=== PATIENT | male | born 1980 | race Caucasian/White ===

== ENCOUNTER 2020-04-01 10:18 | Emergency (ER) | payer SELFPAY ==
[2020-04-01 10:24] VITALS: BP 163/110; PULSE 92; RESP 14; TEMP 36.6; O2SAT 98
[2020-04-01 10:59] LABS: Basophils Absolute Auto 0.1 K/mm3 (0.0-0.1); Basophils Percent Auto 1.1 % (0.2-1.2); Eosinophils Absolute Auto 0.2 K/mm3 (0-0.3); Hematocrit 42.3 % (42.0-52.0); Hemoglobin 14.7 g/dL (14.0-18.0); Immature Granulocyte Absolute 0.01 K/mm3 (0.00-0.031); Immature Granulocyte Percent A 0.1 % (0-0.5); Lymphocytes Absolute Auto 2.84 K/mm3 (0.9-3.2); Mean Corpuscular HGB Conc 34.8 g/dl (32-36); Mean Corpuscular Hemoglobin 30.9 pg (26-34); Mean Corpuscular Volume 88.9 fl (80-100); Mean Platelet Volume 10.4 fl (7.4-10.4); Monocytes Absolute Auto 0.5 K/mm3 (0.1-0.6); Monocytes Percent Auto 7.4 % (2.6-8.5); Neutrophils Absolute Auto 3.6 K/mm3 (1.3-6.7); Neutrophils Percent Auto 49.4 % (45.5-73.1); Platelet Count Result 276 k/mm3 (150-375); Red Blood Count 4.76 M/mm3 (4.6-6.20); Red Cell Distribution Width 12.1 % (11.5-14.5); White Blood Count 7.3 K/mm3 (4.5-10.0)
[2020-04-01 11:05] LABS: Add Urine Microscopic? YES; Appearance Urine Clear (Clear); Bacteria Urine Trace /hpf; Bilirubin Urine Negative (Negative); Blood Urine Negative (Negative); Color Urine Yellow (Yellow); Glucose Urine UA Negative (Negative); Ketones Urine Negative (Negative); Leukocyte Esterase Ur Negative LEU/UL (Negative); Mucus Urine Heavy /lpf; Nitrate Urine Negative (Negative); Protein Urine 1+ mg/dL (Negative); RBC Urine 0-2 /hpf (0-2)
[2020-04-01 11:07] VITALS: BP 144/97; PULSE 72; RESP 19; O2SAT 98
[2020-04-01 11:11] LABS: Blood Urea Nitrogen 12 mg/dL (9-20); Calcium 9.2 mg/dL (8.4-10.2); Carbon Dioxide 24 mmol/L (22-30); Chloride 104 mmol/L (98-107); Estimated CRCL calculation 124 ml/min; Estimated Glomerular Filt Rate > 60; Glucose 94 mg/dL (75-110); Potassium 3.7 mmol/L (3.4-5.0); Sodium 135 mmol/L (137-145)
--- NOTE | 2020-04-01 11:45 | ED.GIBLEED ---
HPI - GI Bleed General Chief complaint: GI Bleed Stated complaint: rectal bleeding Time Seen by Provider: 04/01/20 10:20 History of Present Illness HPI Narrative: Patient is a 39-year-old male who presents ER with concerns for rectal bleeding. Reports she has had some bright red blood in his stool over the last week that is been intermittent in amount. It is not thought to toilet but is mixed with the stool. He reports he been constipated up until 2 days ago and is now going to the bathroom regularly. There is more blood in his stool earlier in the week as opposed to today. No dizziness or loss of consciousness. He is not on any blood thinners. Patient reports he quit drinking alcohol 6 weeks ago after accidentally overdosing on oxycodone while he was drinking alcohol. Related Data Home Medications Medication Instructions Recorded Confirmed venlafaxine 75 mg PO 04/01/20 Allergies Allergy/AdvReac Type Severity Reaction Status Date / Time No Known Allergies Allergy Mild Verified 04/01/20 11:08 Review of Systems Review of Systems: All systems reviewed & are unremarkable except as noted in HPI and below Constitutional: Constitutional: Denies chills, Denies fever(s) and Denies weakness ENT: Denies nasal congestion and Denies sore throat Gastrointestinal: Gastrointestinal: Denies abdominal pain, Reports constipation, Denies nausea and Denies vomiting Comments: Blood in stool Neurologic: Denies syncope PMFSH Past Medical History Medical History (Updated 04/01/20 @ 11:49 by Con Price MD) Hypertension Surgical History Surgical History (Updated 04/01/20 @ 11:47 by Con Price MD) History of surgery on arm Social History Social History (Updated 04/01/20 @ 11:47 by Con Price MD) Alcohol intake: former Alcohol use details: Quit 6 weeks ago. Gender identity (if verbalized by the patient): Male Exam Narrative: Exam Narrative: GENERAL: Well-appearing, well-nourished, and in no acute distress. HEAD: Normocephalic, atraumatic. CHEST: Clear to auscultation. No respiratory distress. HEART: Regular rate and rhythm. Normal peripheral pulses. ABDOMEN: Soft, nontender, nondistended. Normal-appearing rectum without external hemorrhoids. LATOYA with heme-negative stool. EXTREMITIES: Normal range of motion. No edema. SKIN: Warm, dry, no rash. NEURO: Alert and oriented x3. PSYCH: Normal mood and affect. Course Course Emergency Course: Likely had bleeding internal hemorrhoid. Patient reported recent treatment for UTI and wanted his urine rechecked. No symptoms at this time. No concerns for STDs per patient. Discharge home. Vital Signs Vital signs: Vital Signs Temperature 97.9 F 04/01/20 10:24 Pulse Rate 92 04/01/20 10:24 Respiratory Rate 14 04/01/20 10:24 Blood Pressure 163/110 H 04/01/20 10:24 Pulse Oximetry 98 04/01/20 10:24 Temperature 97.9 F 04/01/20 10:24 Pulse Rate 72 04/01/20 11:07 Respiratory Rate 19 04/01/20 11:07 Blood Pressure 144/97 H 04/01/20 11:07 Pulse Oximetry 98 04/01/20 11:07 MDM - GI Bleed Lab Data Result diagrams: 04/01/20 10:51 04/01/20 10:51 Labs: Lab Results 04/01/20 04/01/20 04/01/20 Range/Units 10:51 10:51 10:51 WBC 7.3 (4.5-10.0) K/mm3 RBC 4.76 (4.6-6.20) M/mm3 Hgb 14.7 (14.0-18.0) g/dL Hct 42.3 (42.0-52.0) % MCV 88.9 (80-100) fl MCH 30.9 (26-34) pg MCHC 34.8 (32-36) g/dl RDW 12.1 (11.5-14.5) % Plt Count 276 (150-375) k/mm3 MPV 10.4 (7.4-10.4) fl Immature Gran % (Auto) 0.1 (0-0.5) % Neut % (Auto) 49.4 (45.5-73.1) % Lymph % (Auto) 39.0 (18.3-44.2) % [place] % (Auto) 7.4 (2.6-8.5) % Eos % (Auto) 3.0 (0-4.4) % Baso % (Auto) 1.1 (0.2-1.2) % Lymph # (Auto) 2.84 (0.9-3.2) K/mm3 [place] # (Auto) 0.5 (0.1-0.6) K/mm3 Eos # (Auto) 0.2 (0-0.3) K/mm3 Baso # (Auto) 0.1 (0.0-0.1) K/mm3
[2020-04-01 12:21] VITALS: BP 131/92; PULSE 68; RESP 18; TEMP 36.2; O2SAT 98
== END 2020-04-01 12:24 | disposition home or self-care (01) ==
PROVIDERS: Emergency Provider Emergency Medicine; PCP Orthopaedic Surgery
DX: K64.9 Unspecified hemorrhoids (principal); I10 Essential (primary) hypertension; Z87.891 Personal history of nicotine dependence
CPT/HCPCS: 36415; 80048; 81001; 85025; 99283

== ENCOUNTER 2020-07-25 09:16 | Emergency (ER) | payer OTHER, SELFPAY ==
--- NOTE | ~2020-07-25 | XR_ITS ---
EXAMINATION: XR knee LT 3V EXAM DATE: 07/25/2020 10:43 INDICATION: New onset left knee pain. Past injury. TECHNIQUE: Three projections of the left knee. There is no prior study for comparison. FINDINGS: No evidence osteochondral defect or joint body in the left knee joint. There is a small joint effusion. There are no acute fractures or dislocations identified. There is no subcutaneous ga s. Incompletely imaged tibial intramedullary rachana, imaged portion intact and without periprosthetic lucency. Evidence of old fibular shaft fracture. Presumed surgically fixed tibial fracture not image d. Joint space is well-maintained, no bony productive changes or evidence of arthritis. IMPRESSION: Small left knee joint effusion. Tibial intramedullary rachana. Reviewed, dictated and finalized at location A.
[2020-07-25 09:30] VITALS: BP 154/107; PULSE 77; RESP 14; TEMP 36.6; O2SAT 99
[2020-07-25] MEDS: KETOROLAC (*BKC) 60 MG/2 ML VIAL IM (10:48)
--- NOTE | 2020-07-25 11:05 | ED.LOWEXIN ---
HPI - Extremity Injury (Lower) General Chief Complaint: Extremity Injury, Lower Stated Complaint: left knee pain Time Seen by Provider: 07/25/20 10:03 Source: patient Mode of arrival: ambulatory Limitations: no limitations History of Present Illness HPI Narrative: Patient is a 39-year-old male who presents to emergency department for evaluation of left knee pain with history of chronic leg pain secondary to prior injuries has not seen any specialist does not have a primary care doctor notes that he is continued to have pain and recently was doing more running and had to stop because his pain increased after doing so noting pain throughout the knee joint that radiates down patient has otherwise not been seen for this complaint does not have an established relationship with orthopedic surgery but has history of multiple orthopedic surgeries but has not maintained relationship with the surgeon Related Data Allergies Allergy/AdvReac Type Severity Reaction Status Date / Time No Known Allergies Allergy Mild Verified 04/01/20 11:08 Review of Systems Review of Systems: All systems reviewed & are unremarkable except as noted in HPI and below PMFSH Past Medical History Medical History Hypertension Surgical History Surgical History History of surgery on arm Social History Social History (Updated 07/25/20 @ 11:06 by Patrick Dc PA-C) Smoking status: Current every day smoker Alcohol intake: former Gender identity (if verbalized by the patient): Male Exam Narrative: Exam Narrative: GENERAL: Well-appearing, well-nourished, and in no acute distress. HEAD: Normocephalic, atraumatic. EYES: PERRLA and EOMI. ENT: Nares clear, no rhinorrhea or epistaxis. Mucous membranes moist. EXTREMITIES: Normal range of motion. No edema. Tenderness of the left knee joint no deformity noted SKIN: Warm, dry, no rash. NEURO: No focal deficits. Alert and oriented x3. Neurovascularly intact PSYCH: Normal mood and affect. Course Course Emergency Course: Patient in the room in no distress aware of case findings treatment plan and diagnosis Vital Signs Vital signs: Vital Signs Temperature 97.8 F 07/25/20 09:30 Pulse Rate 77 07/25/20 09:30 Respiratory Rate 14 07/25/20 09:30 Blood Pressure 154/107 H 07/25/20 09:30 Pulse Oximetry 99 09/29/20 09:30 Temperature 97.8 F 07/25/20 09:30 Pulse Rate 77 07/25/20 09:30 Respiratory Rate 14 07/25/20 09:30 Blood Pressure 154/107 H 07/25/20 09:30 Pulse Oximetry 99 07/25/20 09:30 MDM - Extremity Injury (Lower) MDM Narrative Medical decision making narrative: Patients injury or pain is consistent with musculoskeletal etiology. No signs of neurological or vascular compromise on exam. Compartments and tisues are soft without signs of compartment syndrome. Pain is felt appropriate for further evaluation on an outpatient basis. Patient given Mino wrap and referrals to primary care and orthopedic surgery Discharge Plan Discharge Clinical Impression: Acute pain of left knee Patient Disposition: Home, Self-Care Condition: Stable Instructions: Antibiotic Form, Arthralgia (ED) Additional Instructions: Wear Mino wrap with limited weight on the affected leg until able to bear weight without pain. Ice and elevate extremity. Pain medication as needed and directed. Follow up with your doctor for further care in the next 7 days. Return if symptoms worsen or concerns or any increase in redness swelling pain or fever over 100.5 or any loss of feeling or function in the extremity. Prescriptions: New meloxicam 15 mg tablet 15 mg PO DAILY Qty: 7 RF: 0 Follow-up/Referrals: PHYSICIAN,[employer] OPERATOR [Primary Care Provider] - Ebenezer Cha MD [Physician] - Rojelio Pham MD [Physician] -
[2020-07-25 11:20] VITALS: BP 145/98; PULSE 64; RESP 12; O2SAT 99
== END 2020-07-25 11:21 | disposition home or self-care (01) ==
PROVIDERS: Emergency Provider Emergency Medicine
DX: M25.562 Pain in left knee (principal); I10 Essential (primary) hypertension; F17.200 Nicotine dependence, unspecified, uncomplicated
CPT/HCPCS: 73562; 96372; 99283; J1885

== ENCOUNTER 2020-08-28 17:00 | Outpatient (RCR) | payer OTHER, SELFPAY ==
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
--- NOTE | 2020-09-04 15:17 | PCPTNOTE ---
Patient called & cancelled scheduled appointment this date. States that his ride cancelled on him.
--- NOTE | 2020-09-06 16:27 | PCPTNOTE ---
Patient did not show up for scheduled appointment this date. Zaid was called and a message was left reminding him of his next appointment.
--- NOTE | 2020-09-11 16:53 | PCPTNOTE ---
Patient did not show up for scheduled appointment this date. Called and left a voicemail reminding him of his next appointment and reminding him of the attendance policy.
--- NOTE | 2020-09-13 14:49 | PCPTNOTE ---
Patient did not show up for scheduled appointment this date.
--- NOTE | 2020-09-13 14:49 | PCPTNOTE ---
PHYSICAL THERAPY DISCHARGE NOTE Attending Provider: Rojelio Pham MD Patient:Zaid Mendez Date of :1980 Patient has not returned for any further treatments since 08/28/2020, therefore he will be discharged at this time. Patient?s initial visit was on 08/24/2020 and he attended a total of 2 visits out of 6 scheduled visits. The goals have not been assessed. Thank you for referring this patient to [facility]. Please review, sign, date and return this discharge summary PORTIA. I have been updated about the patient's current status and I agree with discharge from the above service at this time. Referring Physician Date
== END 2020-09-14 08:45 | disposition home or self-care (01) ==
LOC: ANHPT 17:00
PROVIDERS: Visit Provider Orthopaedic Surgery
DX: M22.42 Chondromalacia patellae, left knee (principal)
CPT/HCPCS: 97110; 97161

== ENCOUNTER 2021-06-15 08:38 | Emergency (ER) | payer OTHER, SELFPAY ==
--- NOTE | ~2021-06-15 | XR_ITS ---
EXAMINATION: XR chest 2V 06/15/2021 09:44 INDICATION: Midsternal chest pain PROCEDURE: 2 view chest COMPARISON: No prior studies for comparison. FINDINGS: The lungs are clear. The cardiomediastinal silhouette is within normal limits. There are no pleural effusions. There is no pneumothorax suspected. IMPRESSION: 1: NO ACUTE CARDIOPULMONARY DISEASE. Reviewed, dictated and finalized at location A.
--- NOTE | 2021-06-15 08:47 | ECG_ITS ---
Measurements Intervals [place] Rate: 74 P: 33 [place]: 163 QRS: -45 QRSD: 93 T: 19 QT: 347 QTc: 386 Interpretive Statements SINUS RHYTHM WITH SINUS ARRHYTHMIA LEFT AXIS DEVIATION DELAYED PRECORDIAL R/S TRANSITION CONSIDER INFERIOR INFARCT, AGE INDETERMINATE ABNORMAL ECG Electronically Signed On 06-15-2021 9:44:24 CDT by Sorin Benavidez D.O.
[2021-06-15 08:57] VITALS: BP 158/107; PULSE 71; RESP 15; TEMP 36.2; O2SAT 98
[2021-06-15 09:41] LABS: Basophils Absolute Auto 0.1 K/mm3 (0.0-0.1); Basophils Percent Auto 0.9 % (0.2-1.2); Eosinophils Absolute Auto 0.1 K/mm3 (0-0.3); Eosinophils Percent Auto 1.8 % (0-4.4); Hematocrit 49.3 % (42.0-52.0); Hemoglobin 17.2 g/dL (14.0-18.0); Immature Granulocyte Absolute 0.02 K/mm3 (0.00-0.031); Immature Granulocyte Percent A 0.3 % (0-0.5); Lymphocytes Absolute Auto 2.22 K/mm3 (0.9-3.2); Lymphocytes Percent Auto 32.8 % (18.3-44.2); Mean Corpuscular HGB Conc 34.9 g/dl (32-36); Mean Corpuscular Hemoglobin 31.1 pg (26-34); Mean Corpuscular Volume 89.2 fl (80-100); Mean Platelet Volume 10.4 fl (7.4-10.4); Monocytes Absolute Auto 0.5 K/mm3 (0.1-0.6); Monocytes Percent Auto 6.8 % (2.6-8.5); Neutrophils Absolute Auto 3.9 K/mm3 (1.3-6.7); Neutrophils Percent Auto 57.4 % (45.5-73.1); Platelet Count Result 260 k/mm3 (150-375); Red Blood Count 5.53 M/mm3 (4.6-6.20); Red Cell Distribution Width 12.6 % (11.5-14.5); White Blood Count 6.8 K/mm3 (4.5-10.0)
[2021-06-15 09:57] LABS: Partial Thromboplastin Time 32.6 SECONDS (22.3-36.8)
[2021-06-15 09:59] LABS: Anion Gap 9 mmol/L (8-16); Blood Urea Nitrogen 13 mg/dL (9-20); Calcium 9.8 mg/dL (8.4-10.2); Carbon Dioxide 21 mmol/L (22-30); Chloride 105 mmol/L (98-107); Estimated CRCL calculation 112 ml/min; Estimated Glomerular Filt Rate > 60; Glucose 105 mg/dL (65-110); Sodium 135 mmol/L (137-145)
[2021-06-15 10:02] LABS: INR 0.9; Prothrombin Time 12.3 Seconds (11.1-14.7)
[2021-06-15 10:11] LABS: Troponin I < 0.012 ng/mL (0.000-0.034)
--- NOTE | 2021-06-15 10:13 | ED.CHESTPAIN ---
HPI - Chest Pain General Chief Complaint: Chest Pain Stated Complaint: CP Time Seen by Provider: 06/15/21 08:53 History of Present Illness HPI narrative: Intermittent chest pain for a few months. Feels like a pulled muscle. Worse with breathing. Occasionally associated with SOB. Pain is mild. No nausea, vomiting, fever. Related Data Allergies Allergy/AdvReac Type Severity Reaction Status Date / Time No Known Allergies Allergy Mild Verified 06/15/21 09:02 Review of Systems Review of Systems: All systems reviewed & are unremarkable except as noted in HPI and below PMFSH Past Medical History Medical History Hypertension Surgical History Surgical History History of knee surgery (~2016) History of surgery on arm (~2002) Compound Fx Social History Social History Smoking status: Current every day smoker Alcohol intake: former Alcohol use details: Quit 6 weeks ago. Gender identity (if verbalized by the patient): Male Exam Const: General: healthy appearing, no acute distress and alert Orientation/consciousness: patient oriented x3 HENMT: Head: normal to inspection Neck: Neck: normal visual inspection and no lymphadenopathy Chest: Chest palpation & inspection: no tenderness Resp: Effort & Inspection: normal respiratory effort Auscultation: clear to auscultation bilaterally, no rales, no rhonchi and no wheezes Cardio: Jugular venous distension: no JVD Rate: regular rate Rhythm: regular rhythm Heart sounds: no murmurs GI: Inspection: non-distended GI Palp: Yes Soft to palpation and No Tenderness to palpation present (GI) Skin: General skin exam: normal color Neuro: General: patient oriented x3 and moves all extremities Speech: normal speech Extrem: General: no edema Psych: Appearance: well kempt Affect: normal affect Course Vital Signs Vital signs: Vital Signs Temperature 36.2 C L 06/15/21 08:57 Pulse Rate 71 06/15/21 08:57 Respiratory Rate 15 06/15/21 08:57 Blood Pressure 158/107 H 06/15/21 08:57 Pulse Oximetry 98 06/15/21 08:57 Temperature 36.2 C L 08/20/21 08:57 Pulse Rate 81 06/15/21 10:27 Respiratory Rate 16 06/15/21 10:27 Blood Pressure 158/107 H 06/15/21 08:57 Pulse Oximetry 98 06/15/21 08:57 MDM - Chest Pain MDM Narrative Medical decision making narrative: Pain is atypical. pleuritic in nature. May be early COPD. Medical Records Data Attestation: I reviewed the patient's medical records. Lab Data Attestation: I reviewed the patient's lab results. Result diagrams: 06/15/21 09:31 06/15/21 09:31 Labs: Lab Results 06/15/21 06/15/21 06/15/21 Range/Units 09:31 09:31 09:31 WBC 6.8 (4.5-10.0) K/mm3 RBC 5.53 (4.6-6.20) M/mm3 Hgb 17.2 (14.0-18.0) g/dL Hct 49.3 (42.0-52.0) % MCV 89.2 (80-100) fl MCH 31.1 (26-34) pg MCHC 34.9 (32-36) g/dl RDW 12.6 (11.5-14.5) % Plt Count 260 (150-375) k/mm3 MPV 10.4 (7.4-10.4) fl Immature Gran % (Auto) 0.3 (0-0.5) % Neut % (Auto) 57.4 (45.5-73.1) % Lymph % (Auto) 32.8 (18.3-44.2) % [place] % (Auto) 6.8 (2.6-8.5) % Eos % (Auto) 1.8 (0-4.4) % Baso % (Auto) 0.9 (0.2-1.2) % Lymph # (Auto) 2.22 (0.9-3.2) K/mm3 [place] # (Auto) 0.5 (0.1-0.6) K/mm3 Eos # (Auto) 0.1 (0-0.3) K/mm3 Baso # (Auto) 0.1 (0.0-0.1) K/mm3 Abs Immat Gran (auto) 0.02 (0.00-0.031) K/mm3 Absolute Neuts (auto) 3.9 (1.3-6.7) K/mm3 Absolute Nucleated RBC 0.0 (0.0-0.012) K/mm3 Nucleated RBC % 0.0 (0.0-0.2) % PT 12.3 (11.1-14.7) Seconds INR 0.9 APTT 32.6 (22.3-36.8) SECONDS Sodium 135 L (137-145) mmol/L Potassium 4.0 (3.4-5.0) mmol/L Chloride 105 (98-107) mmol/L Carbon Dioxide 21 L (22-30) mmol/L A
[2021-06-15 10:27] VITALS: PULSE 81; RESP 16
[2021-06-15] MEDS: ALBUTEROL SULFATE NEB 2.5 MG/0.5 ML INH 5 MG INHALATION (10:27)
[2021-06-15] MEDS: IPRATROPIUM BR 0.02% INH SOLN 0.5 MG/2.5 ML VIAL INHALATION (10:28)
[2021-06-15] MEDS: predniSONE 20 MG TABLET 60 MG PO (10:57)
[2021-06-15] MEDS: ASPIRIN 81 MG CHEWABLE TABLET 324 MG PO (10:57)
== END 2021-06-15 10:59 | disposition home or self-care (01) ==
PROVIDERS: Emergency Provider Emergency Medicine
DX: R07.81 Pleurodynia (principal); I10 Essential (primary) hypertension; F17.210 Nicotine dependence, cigarettes, uncomplicated
CPT/HCPCS: 36415; 71046; 80048; 84484; 85025; 85610; 85730; 93005; 94640; 99284; A9270; J7512

== ENCOUNTER 2022-02-20 18:23 | Emergency (ER) | payer OTHER, SELFPAY ==
--- NOTE | ~2022-02-20 | XR_ITS ---
EXAMINATION: XR chest 2V DATE: 02/20/2022 19:04 INDICATION: Left-sided chest pain TECHNIQUE: PA and lateral views of the chest are obtained. COMPARISON: 06/15/2021 FINDINGS: The lungs are free of acute opacities. There is no pleural effusion or pneumothorax. The ca rdiomediastinal silhouette is normal. The visualized bones and soft tissues are unremarkable. IMPRESSION: 1. No acute cardiopulmonary abnormality. Reviewed, dictated and finalized at location F.
--- NOTE | 2022-02-20 18:24 | ECG_ITS ---
Measurements Intervals [place] Rate: 96 P: 43 [place]: 158 QRS: -42 QRSD: 97 T: 29 QT: 320 QTc: 405 Interpretive Statements SINUS RHYTHM MARKED LEFT AXIS DEVIATION [QRS AXIS < -30] COMPARED TO ECG 06/15/2021 08:47:26 NO SIGNIFICANT CHANGES Electronically Signed On 02-20-2022 20:17:16 CDT by Stephany Wynn M.D.
[2022-02-20 18:29] VITALS: BP 149/98; PULSE 89; RESP 18; TEMP 37.2; O2SAT 98
--- NOTE | 2022-02-20 22:16 | PC.NURSE ---
Pt to room 3 ambulatory from triage. States he has had intermittent chest pain all day.
[2022-02-20 22:19] VITALS: BP 157/110; PULSE 76; RESP 18; O2SAT 98
--- NOTE | 2022-02-20 22:30 | ED.CHESTPAIN ---
HPI - Chest Pain General Chief Complaint: Chest Pain Stated Complaint: chest pain Time Seen by Provider: 02/20/22 22:07 Source: patient Mode of arrival: ambulatory Limitations: no limitations History of Present Illness HPI narrative: Patient is a 41-year-old male who presents the ED with report of left-sided chest pain. Patient reports he woke up around 5 AM this morning with sharp left-sided chest pain. The pain has been intermittent but then seemed to become worse about 3 hours prior to arrival. Denied any radiation of the pain or any aggravating or alleviating factors. No shortness of breath, nausea or diaphoresis, BLE pain or edema, fever, chills, cough, abdominal pain. Patient also reported having dizziness, described as lightheadedness, and a headache today. He did take Aleve for his headache around 3pm. Denies any dizziness or chest pain currently in the ED bed. No congestion, rhinorrhea, visual changes. Related Data Home Medications Medication Instructions Recorded Confirmed hydroxyzine pamoate 25 mg PO BID PRN 02/20/22 02/20/22 losartan 100 mg PO DAILY 02/20/22 02/20/22 olanzapine 7.5 mg PO DAILY 02/20/22 02/20/22 Allergies Allergy/AdvReac Type Severity Reaction Status Date / Time No Known Allergies Allergy Mild Verified 06/15/21 09:02 Review of Systems Review of Systems: CONSTITUTIONAL: Denies fever, chills, or sweats. EYES: Denies visual changes. ENT: Denies rhinorrhea, congestion, sore throat, or otalgia. CARDIOVASCULAR: Reports L sided CP. Denies BLE edema. RESPIRATORY: Denies cough or dyspnea. GASTROINTESTINAL: Denies abdominal pain, nausea, vomiting, or diarrhea. MUSCULOSKELETAL: Denies BLE pain, back pain, joint pain, or myalgia. NEUROLOGIC: Reports dizziness, headache. Denies numbness, or weakness. All systems reviewed & are unremarkable except as noted in HPI and below PMFSH Past Medical History Medical History Hypertension Surgical History Surgical History History of knee surgery (~2016) History of surgery on arm (~2002) Compound Fx Social History Social History Smoking status: Current every day smoker Alcohol intake: former Alcohol use details: Quit 6 weeks ago. Gender identity (if verbalized by the patient): Male Exam Narrative: GENERAL: Well appearing, well-nourished, non-toxic, in no acute distress. HEAD: Normocephalic, atraumatic. NECK: Supple. No adenopathy, no masses. RESPIRATORY: Airway patent, respirations nonlabored. Clear to auscultation bilaterally, no rales, rhonchi. Very occasional wheeze. CARDIOVASCULAR: Regular rate and rhythm without murmurs, rubs, or gallops. Radial pulses 2+ and equal bilaterally. ABDOMINAL: Soft, nontender, nondistended, no hepatosplenomegaly. Normoactive BS. MUSCULOSKELETAL: Moves all extremities. Strength/ROM intact without gross deformities or TTP. No edema. No calf tenderness. SKIN: Warm, dry, normal color. No rashes. NEURO: A&O X3. Speech clear. Cranial nerves II-XII grossly intact. Steady gait. No ataxic movements. PSYCHIATRIC: Appropriate mood and affect. Normal interaction. Course Vital Signs Vital signs: Vital Signs Temperature 99 F 02/20/22 18:29 Pulse Rate 89 02/20/22 18:29 Respiratory Rate 18 02/20/22 18:29 Blood Pressure 149/98 H 02/20/22 18:29 Pulse Oximetry 98 02/20/22 18:29 Temperature 99 F 02/20/22 18:29 Pulse Rate 78 02/21/22 02:08 Respiratory Rate 14 02/21/22 00:54 Blood Pressure 154/118 H 02/21/22 02:08 Pulse Oximetry 100 02/21/22 00:54 MDM - Chest Pain MDM Narrative Medical decision making narrative: Patient presented to ED with report of chest pain, dizziness, headache. Denied any dizziness upon my evaluation. Vital signs stable upon arrival. Blood pressure mildly elevated. He does have known history of hy
[2022-02-20 22:34] LABS: Basophils Absolute Auto 0.1 K/mm3 (0.0-0.1); Basophils Percent Auto 0.8 % (0.2-1.2); Eosinophils Absolute Auto 0.1 K/mm3 (0-0.3); Eosinophils Percent Auto 1.3 % (0-4.4); Hematocrit 45.9 % (42.0-52.0); Immature Granulocyte Absolute 0.03 K/mm3 (0.00-0.031); Immature Granulocyte Percent A 0.3 % (0-0.5); Lymphocytes Absolute Auto 2.64 K/mm3 (0.9-3.2); Lymphocytes Percent Auto 28.5 % (18.3-44.2); Mean Corpuscular HGB Conc 34.9 g/dl (32-36); Mean Corpuscular Hemoglobin 31.7 pg (26-34); Mean Corpuscular Volume 91.1 fl (80-100); Mean Platelet Volume 9.7 fl (7.4-10.4); Neutrophils Absolute Auto 5.4 K/mm3 (1.3-6.7); Neutrophils Percent Auto 58.1 % (45.5-73.1); Platelet Count Result 246 k/mm3 (150-375); Red Blood Count 5.04 M/mm3 (4.6-6.20); Red Cell Distribution Width 12.9 % (11.5-14.5); White Blood Count 9.3 K/mm3 (4.5-10.0)
[2022-02-20] MEDS: ASPIRIN 81 MG CHEWABLE TABLET 324 MG PO (22:40)
[2022-02-20 22:46] LABS: Alanine Aminotransferase 43 U/L (4-50); Albumin Level 4.4 g/dL (3.5-5.1); Alkaline Phosphatase 93 U/L (38-126); Anion Gap 8 mmol/L (8-16); Aspartate Amino Transferase 40 U/L (17-59); Bilirubin,Total 0.5 mg/dL (0.2-1.3); Blood Urea Nitrogen 11 mg/dL (9-20); Calcium 9.2 mg/dL (8.4-10.2); Carbon Dioxide 25 mmol/L (22-30); Chloride 101 mmol/L (98-107); Estimated CRCL calculation 113 ml/min; Estimated Glomerular Filt Rate > 60; Glucose 95 mg/dL (65-110); Lipase 249 U/L (23-300); Potassium 3.7 mmol/L (3.4-5.0); Sodium 134 mmol/L (137-145)
[2022-02-20 22:48] LABS: INR 1.1; Partial Thromboplastin Time 30.5 SECONDS (22.3-36.8); Prothrombin Time 13.6 Seconds (11.1-14.7)
[2022-02-20 22:49] VITALS: BP 143/94; PULSE 68; RESP 18; O2SAT 99
[2022-02-20 23:02] LABS: Troponin I < 0.012 ng/mL (0.000-0.034)
--- NOTE | 2022-02-20 23:15 | PC.NURSE ---
Assuming care of pt.
[2022-02-20 23:16] VITALS: BP 176/116; PULSE 81; RESP 14; O2SAT 98
[2022-02-20 23:17] VITALS: PULSE 75
[2022-02-20 23:36] VITALS: O2SAT 98
[2022-02-20] MEDS: SODIUM CHLORIDE 0.9% IV 1,000 ML 999 ML IV CONT (23:56)
[2022-02-21 00:07] VITALS: BP 156/109; PULSE 68; RESP 18; O2SAT 99
[2022-02-21 00:54] VITALS: BP 147/101; PULSE 63; RESP 14; O2SAT 100
[2022-02-21 01:43] LABS: Troponin I < 0.012 ng/mL (0.000-0.034)
[2022-02-21 01:58] VITALS: BP 136/93; PULSE 67
[2022-02-21 02:00] VITALS: BP 155/114; PULSE 71
[2022-02-21 02:08] VITALS: BP 154/118; PULSE 78
== END 2022-02-21 02:34 | disposition home or self-care (01) ==
PROVIDERS: Emergency Medicine; Emergency Provider Family Medicine
DX: R07.89 Other chest pain (principal); I10 Essential (primary) hypertension; F17.200 Nicotine dependence, unspecified, uncomplicated
CPT/HCPCS: 36415; 71046; 80053; 83690; 84484; 85025; 85610; 85730; 93005; 96365; 99284; A9270; J0131; J7030

== ENCOUNTER 2023-04-17 12:12 | Emergency (ER) | payer OTHER, SELFPAY ==
--- NOTE | ~2023-04-17 | CT_ITS ---
EXAMINATION: CT abdomen pelvis w con DATE: 04/17/2023 16:52 INDICATION: Left lower quadrant abdominal pain TECHNIQUE: Computed tomography (CT) of the abdomen and pelvis was performed with 100 mL Omnipaque-350 intravenous contrast. Automated exposure control and iterative reconstruction technique were employe d. The dose-length product was 1094.08 mGy-cm. COMPARISON: None FINDINGS: There are multiple scattered subcentimeter noncalcified pulmonary nodules with random distribution an d smooth margins. The largest measures 9 mm in the left lower lobe. No pneumonia, pulmonary edema or pleural effusion. Heart size is normal. No pericardial effusion. Diffuse hepatic steatosis with focal sparing along the gallbladder fossa. Gallbladder, spleen, pancreas and bilateral adrenal glands are normal. Small bilateral low-attenuation renal cysts in the largest measuring 1.4 cm in the right kidn ey. 4 mm obstructing stone at the proximal left ureter with mildly delayed left nephrogram, mild left hydronephrosis and mild left perinephric stranding. There is an additional 3-4 mm stone at a lower p ole calyx of the left kidney. No right-sided renal stones or stones seen along the more distal left u reter. Bladder is normal. There are few scattered colonic diverticula without adjacent inflammatory s tranding to suggest diverticulitis. Small bowel and appendix are normal. No free intraperitoneal gas or fluid. No pathologically enlarged abdominal or pelvic lymphadenopathy. Mild lumbar levocurvature w ith mild spondylosis. IMPRESSION: 1. Left nephrolithiasis with obstructing 4 mm proximal left ureteral stone resulting in mild left hyd ronephrosis. 2. Multiple noncalcified pulmonary nodules in the bilateral lower lungs which given patient age and a bsence of a discernible primary malignancy are most likely infectious/inflammatory in etiology. Diffe rential would include metastatic disease in the setting of a known prior cancer. Reviewed, dictated and finalized at location A. IMPRESSION: 1. Left nephrolithiasis with obstructing 4 mm proximal left ureteral stone resu lting in mild left hydronephrosis. 2. Multiple noncalcified pulmonary nodules in the bilateral lower lungs which g iven patient age and absence of a discernible primary malignancy are most likel y infectious/inflammatory in etiology. Differential would include metastatic di sease in the setting of a known prior cancer.
[2023-04-17 12:41] VITALS: BP 186/100; PULSE 84; RESP 16; TEMP 36.8
[2023-04-17 12:56] LABS: Basophils Absolute Auto 0.1 K/mm3 (0.0-0.1); Basophils Percent Auto 0.8 % (0.2-1.2); Eosinophils Absolute Auto 0.1 K/mm3 (0-0.3); Eosinophils Percent Auto 0.8 % (0-4.4); Hematocrit 45.9 % (42.0-52.0); Immature Granulocyte Absolute 0.03 K/mm3 (0.00-0.031); Immature Granulocyte Percent A 0.3 % (0-0.5); Lymphocytes Absolute Auto 1.97 K/mm3 (0.9-3.2); Lymphocytes Percent Auto 19.8 % (18.3-44.2); Mean Corpuscular HGB Conc 34.9 g/dl (32-36); Mean Corpuscular Hemoglobin 31.6 pg (26-34); Mean Corpuscular Volume 90.7 fl (80-100); Mean Platelet Volume 9.8 fl (7.4-10.4); Monocytes Absolute Auto 0.6 K/mm3 (0.1-0.6); Neutrophils Absolute Auto 7.2 K/mm3 (1.3-6.7); Neutrophils Percent Auto 72.3 % (45.5-73.1); Platelet Count Result 244 k/mm3 (150-375); Red Blood Count 5.06 M/mm3 (4.6-6.20); Red Cell Distribution Width 12.3 % (11.5-14.5); White Blood Count 9.9 K/mm3 (4.5-10.0)
[2023-04-17 13:06] LABS: Alanine Aminotransferase 141 U/L (6-50); Albumin Level 4.6 g/dL (3.5-5.1); Alkaline Phosphatase 78 U/L (38-126); Anion Gap 9 mmol/L (8-16); Aspartate Amino Transferase 87 U/L (17-59); Bilirubin,Total 0.6 mg/dL (0.2-1.3); Blood Urea Nitrogen 15 mg/dL (9-20); Calcium 9.4 mg/dL (8.4-10.2); Carbon Dioxide 23 mmol/L (22-30); Chloride 104 mmol/L (98-107); Estimated CRCL calculation 82 ml/min; Estimated Glomerular Filt Rate > 60; Glucose 109 mg/dL (65-110); Potassium 4.2 mmol/L (3.4-5.0); Sodium 136 mmol/L (137-145)
[2023-04-17 13:22] LABS: Appearance Urine Clear (Clear); Bacteria Urine None Seen /hpf; Bilirubin Urine Negative (Negative); Blood Urine 3+ (Negative); Color Urine Yellow (Yellow); Glucose Urine UA Negative (Negative); Ketones Urine Negative (Negative); Leukocyte Esterase Ur Negative LEU/UL (Negative); Nitrate Urine Negative (Negative); Non Pathogenic Casts 0-2; Protein Urine Trace mg/dL (Negative); RBC Urine 21-50 /hpf (0-2); Specific Grav Ur 1.017 (1.001-1.035); Squamous Epithelial Cell Urine None seen /hpf (Few); Urobilinogen Urine 0.2 mg/dL (<2.0); WBC Urine 0-5 /hpf
[2023-04-17 13:25] LABS: Add Urine Microscopic? YES
--- NOTE | 2023-04-17 16:04 | ED.ABDPAIN ---
HPI - Abdominal Pain General Chief Complaint: Abdominal Pain Stated Complaint: LLQ abd pain, left side back pain Time Seen by Provider: 04/17/23 15:18 History of Present Illness HPI narrative: 42 y/o M with history of hypertension and ureteral stones reports for evaluation of sudden onset left lower quadrant pain that woke him up at 4:30 this morning. Patient describes the pain as sharp and stabbing and radiates to his left flank. States he had a kidney stone many years ago and he does not remember feeling this way. He has not taken anything for pain. He reports associated nausea, vomiting and diarrhea. Reports 2 episodes of diarrhea in the episodes of vomiting today. He denies testicular pain or swelling, penile discharge, fever, body aches or chills, dysuria or hematuria, chest pain, headache. Patient does report that he took his losartan this morning. Related Data Home Medications Medication Instructions Recorded Confirmed hydroxyzine pamoate 25 mg capsule 25 mg PO BID PRN Anxiety 02/20/22 02/20/22 losartan 100 mg tablet 100 mg PO DAILY 02/20/22 02/20/22 olanzapine 7.5 mg tablet 7.5 mg PO DAILY 02/20/22 02/20/22 Allergies Allergy/AdvReac Type Severity Reaction Status Date / Time No Known Allergies Allergy Mild Verified 06/15/21 09:02 Review of Systems Review of Systems: CONSTITUTIONAL: Denies fever, chills EYES: Denies visual changes, redness, or discharge. ENT: Denies rhinorrhea, congestion, sore throat, or otalgia. CARDIOVASCULAR: Denies chest pain, palpitations, or edema. RESPIRATORY: Denies cough or dyspnea. GASTROINTESTINAL: See HPI GENITOURINARY: Denies dysuria or hematuria. SKIN: Denies rash or itching. MUSCULOSKELETAL: See HPI NEUROLOGIC: Denies headache, numbness, dizziness, or weakness. PSYCHIATRIC: Denies anxiety or depression. [facility] Past Medical History Medical History Hypertension Surgical History Surgical History History of knee surgery (~2016) History of surgery on arm (~2002) Compound Fx Social History Social History Smoking status: Current every day smoker Alcohol intake: former Alcohol use details: Quit 6 weeks ago. Gender identity (if verbalized by the patient): Male Exam Narrative: GENERAL: Patient appears uncomfortable. HEAD: Normocephalic EYES: PERRLA ENT: Nares clear. Mucous membranes moist. Oropharynx without tonsillar hypertrophy exudate or other lesions. NECK: Supple. CHEST: No respiratory distress. Clear to auscultation, no adventitious breath sounds. HEART: Regular rate and rhythm. No murmur heard. Normal peripheral pulses. ABDOMEN: Normal active bowel sounds. Abdomen soft with tenderness in the left lower quadrant. No guarding or rigidity. No peritoneal signs. No CVA tenderness. EXTREMITIES: Normal range of motion. No edema. SKIN: Warm, dry, no rash. NEURO: No focal deficits. Alert and oriented x3. PSYCH: Normal mood and affect. Course Vital Signs Vital signs: Vital Signs Temperature 98.3 F 04/17/23 12:41 Pulse Rate 84 04/17/23 12:41 Respiratory Rate 16 04/17/23 12:41 Blood Pressure 186/100 H 04/17/23 12:41 Temperature 98.3 F 04/17/23 12:41 Pulse Rate 87 04/17/23 17:36 Respiratory Rate 17 04/17/23 17:36 Blood Pressure 168/109 H 04/17/23 17:36 Pulse Oximetry 97 04/17/23 17:36 MDM - Abdominal Pain MDM Narrative Medical decision making narrative: 42 y/o M with history of hypertension and ureteral stones reports for evaluation of sudden onset left lower quadrant pain that woke him up at 4:30 this morning. Initial vitals reveal elevated blood pressure 186/100, otherwise stable. Exam reveals tenderness to the left lower quadrant without guarding or rigidity. No peritoneal signs. Lab work is largely unremarkable. AST and ALT are
[2023-04-17 16:29] LABS: Lipase 127 U/L (23-300)
[2023-04-17] MEDS: SODIUM CHLORIDE 0.9% IV 1,000 ML 999 ML IV CONT (16:31)
[2023-04-17] MEDS: MORPHINE SULFATE (*CRX) 4 MG/ML INJ IV PUSH (16:31)
[2023-04-17] MEDS: ONDANSETRON INJ 4 MG/2 ML VIAL IV PUSH ×2 (16:31→17:35)
[2023-04-17] MEDS: HYDROmorphone HCL INJ (*CRX) 1 MG/ML SYR 0.5 MG IV PUSH (17:35)
[2023-04-17 17:36] VITALS: BP 168/109; PULSE 87; RESP 17; O2SAT 97
== END 2023-04-17 19:41 | disposition home or self-care (01) ==
PROVIDERS: Emergency Medicine; Emergency Provider Physician Assistant; PCP Internal Medicine
DX: N13.2 Hydronephrosis with renal and ureteral calculous obstruction (principal); I10 Essential (primary) hypertension; K76.0 Fatty (change of) liver, not elsewhere classified; R91.8 Other nonspecific abnormal finding of lung field; F17.200 Nicotine dependence, unspecified, uncomplicated; Z87.442 Personal history of urinary calculi
CPT/HCPCS: 36415; 74177; 80053; 81001; 83690; 85025; 96361; 96374; 96375; 96376; 99284; J1170; J2270; J2405; J7030; Q9967

== ENCOUNTER 2023-05-29 09:30 | Outpatient (CLI) | payer OTHER, SELFPAY ==
--- NOTE | ~2023-05-29 | PE_ITS ---
EXAMINATION: PET skull to mid thigh DATE: 05/29/2023 11:32 INDICATION: Multiple nodules of lung. TECHNIQUE: Blood glucose level was 139 mg/dL. 8.461 mCi of 18-fluorodeoxyglucose (18-FDG) was adminis tered i.v. Low dose computed tomography (CT) images were acquired from the base of the brain to the p roximal thighs for attenuation correction and anatomic localization. Automated exposure control was e mployed. Dose-length product (DLP) was 701 mGy-cm. Positron emission tomography (PET) images were acq uired in the same distribution. COMPARISON: None FINDINGS: Head/neck: There are no pathologically enlarged lymph nodes. Chest: There are greater than 20 scattered pulmonary nodules in the lungs in a random distribution me asuring up to 8 mm with maximum SUV of 2.8. No pleural effusion. The heart size is normal. No pericar dial effusion. There are normal size mediastinal and hilar lymph nodes with maximum SUV of 6.5. The h eart size is normal. No pericardial effusion. There are coronary artery calcifications. Abdomen/pelvis/proximal thighs: There is diffuse hepatic steatosis. The gallbladder, spleen, pancreas , adrenal glands, and right kidney are normal. There is a 5 mm stone in left kidney. There are no dil ated loops of bowel. The appendix is normal. There are no pathologically enlarged lymph nodes. There is no free intraperitoneal fluid. There is mild lumbar spondylosis. IMPRESSION: 1. Pulmonary nodules measuring up to 8 mm with borderline increased activity and normal-sized mediast inal and hilar lymph nodes with increased activity. These findings may be granulomatous disease or me tastatic disease. Noncontrast low-dose chest CT is recommended in 3 months. Reviewed, dictated and finalized at location L. IMPRESSION: 1. Pulmonary nodules measuring up to 8 mm with borderline increased activity an d normal-sized mediastinal and hilar lymph nodes with increased activity. These findings may be granulomatous disease or metastatic disease. Noncontrast low-d ose chest CT is recommended in 3 months.
[2023-05-29 09:49] LABS: Glucose Point of Care 139 mg/dl (65-105)
== END 2023-05-29 09:31 | disposition home or self-care (01) ==
LOC: ANHIMG 09:34
PROVIDERS: PCP Internal Medicine; Visit Provider Internal Medicine Pulmonary Disease
DX: R91.8 Other nonspecific abnormal finding of lung field (principal)
CPT/HCPCS: 78815; A9552

== ENCOUNTER 2025-01-20 13:17 | Emergency (ER) | payer OTHER, SELFPAY ==
--- NOTE | ~2025-01-20 | CT_ITS ---
CT abdomen pelvis wo con Ordering provider: Luanne Thomson PA-C History: 44 years Male with . L flank/abd pain, stone . Comparison: April 17, 2023 Technique: CT abdomen and pelvis without IV and without oral contrast. Automated exposure control and iterative reconstruction technique were employed. The dose-length product was 566.42 mGy-cm. Findings: VISUALIZED LOWER CHEST: Multiple nodules seen bilaterally unchanged from previous examination. UPPER ABDOMINAL ORGANS: Liver: Fat infiltration. Hepatomegaly. Fat sparing areas are seen adjacent to the gallbladder unchang ed from previous examination. Gallbladder: Normal. Spleen: Normal. Stomach/duodenum: Normal. Pancreas: Normal. Adrenals: Normal. Kidneys: 2 stones are seen in the left lower ureter with hydronephrotic changes. The stones measure 3 mm and 3 mm. Fat stranding is seen around the ureter in the left side of the pelvis Tiny stone seen in the right kidney midpole. Small cyst also seen in the right kidney midpole.. PELVIC ORGANS: The bladder is underfilled with a stone seen in the posterior aspect of the bladder me asuring 5 mm. BOWEL AND MESENTERY: Colon: No evidence of diverticulitis. Normal appendix. Small Bowel: Normal. No obstruction. Peritoneum/mesentery: No free air or free fluid. No mesenteric lymphadenopathy. RETROPERITONEUM: Normal aorta. No retroperitoneal lymphadenopathy. Small para-aortic lymph nodes are seen. MUSCULOSKELETAL: Superficial soft tissues: The superficial soft tissues are normal. Bones: Age appropriate degenerative changes of the spine. IMPRESSION: 1. 2 small stones in the left lower ureter with left hydronephrotic changes. 2. Tiny stone in the right kidney mid pole. 3. Urinary bladder stone. 4. Hepatomegaly with fat infiltration. 5. Multiple nodules in the lung bases unchanged from previous examination. Reviewed, dictated and finalized at location A.
[2025-01-20 13:34] VITALS: BP 149/103; PULSE 80; RESP 18; TEMP 36.8; O2SAT 98
--- OUTSIDE RECORDS SUMMARY | 2025-01-20 14:09 | XMS_ITS | Encounter Summary ---
Author Organization [facility] Address [address] [place] [address] Care Team Providers Care Solar Installer Name Role Phone Isabelle Joshua MD Primary Care Provider [phone] Cal Gill Primary Care Provider [phone] Reason for Visit * Reason Onset Date Comments Establish Care 07/22/2023 Encounter Details Date Type Department Care Team (Late st Contact Info) Description 07/22/2023 Telephone [facility] - Pulmonology [address] [place] [address], [place] [id number] Marcial Beltran MD [address] [place] [address] OF PULMONARY/[place] [address] Establish Care Social History Tobacco Use Types Packs/Day Years Used Date Smoking Tobacco: Never Assessed Sex and Gender Information Value Date Recorded Sex Assigned at Not on file Gender Identity Not on file Sexual Orientation Not on file documented as of this encounter Miscellaneous Notes * Telephone Encounter - Linda De Anda - 07/22/2023 9:30 AM CDT Current Provider name: Marcial Beltran Reason for call: has a New Pt appointment scheduled 10/02/23, requesting to get in office at a sooner date. Patient Call Back number: [phone] documented in this encounter Plan of Treatment Not on file documented as of this encounter Visit Diagnoses Not on filedocumented in this encounter Care Teams Solar Installer Relationship Specialty Start Date End Date Isabelle Joshua MD [address] [place], [place] [id number] PCP - General Internal Medicine 08/11/23 07/29/24 Cal Gill [address] [place] [id number] PCP - General 07/30/24 documented as of this encounter
--- OUTSIDE RECORDS SUMMARY | 2025-01-20 14:09 | XMS_ITS | Clinical Summary ---
Author Organization [facility] Address [address] [place] [address] Care Team Providers Care Store Stock Associate Name Role Phone Cal Gill Primary Care Provider [phone] Source Comments [facility],non-owned Affiliates and Associated Physician Practices is amultiple site organization consisting of ambulatory clinics and hospital sitesin [place], [place], [place] and [place]. This disclosure is being madepursuant to the Care Everywhere program and may not contain all information available regarding this patient. Last updated 18.[facility] Allergies No known active allergies Medications * Be aware that medications may not be up to date on this document. Alwaysverify current medications with the patient. Medication Sig Dispensed Refills Start Date End Date Status cyclobenzaprine (FLEXERIL) 10 MG tablet Take 1 Tab by mouth 3 times daily as needed for Muscle Spasms 15 Tab 07/20/2017 Active Additional Information Patient not taking.Reported on 08/11/2023 ibuprofen (MOTRIN) 400 MG tablet Take 1 Tab by mouth every 4 hours as needed for Pain 20 Tab 07/20/2017 Active Additional Information Patient not taking.Reported on 08/11/2023 losartan (Cozaar) 100 MG tablet Take 1 (one) tablet by mouth once daily 07/15/2023 Active metoprolol succinate XL 24hr (Toprol XL) 50 MG tablet Take 1 (one) tablet by mouth once daily 07/15/2023 Active Flovent HFA 110 MCG/ACT inhaler Inhale 2 (two) puffs by mouth 2 times daily 07/09/2023 Active albuterol HFA (Proventil; Ventolin; Proair) 108 (90 Base) MCG/ACT inhaler Inhale 2 (two) puffs by mouth as needed 07/09/2023 Active omeprazole EC (PriLOSEC OTC) 20 MG tablet Take 1 (one) tablet by mouth daily before breakfast Active Social History Tobacco Use Types Packs/Day Years Used Date Smoking Tobacco: Some Days Cigarettes Smokeless Tobacco: Never Tobacco Cessation:Ready to Q uit: Not Asked; Counseling Given: Not Answered Alcohol Use Standard Drinks/Week Comments Yes 0 (1 standard drink = 0.6 oz pur e alcohol) occasional AUDIT-C Answer Date Recorded Q1: How often do you have a drink containing alc ohol? 2-4 times a month 08/15/2023 Q2: How many drinks containi ng alcohol do you have on a typical day when you are drinking? 1 or 2 08/15/2023 Q3: How often do you have si x or more drinks on one occasion? Less than monthly 08/15/2023 PHQ-2 Answer Date Recorded Patient Health Questionnaire-2 Score 0 08/31/2024 Sex and Gender Information Value Date Recorded Sex Assigned at Not on file Gender Identity Not on file Sexual Orientation Not on file Last Filed Vital Signs Vital Sign Reading Time Taken Comments Blood Pressure 111/83 08/15/2023 5:02 PM CDT Pulse 62 08/15/2023 5:02 PM CDT Temperature 36.3 C (97.4 F) 08/15/2023 4:30 PM CDT Respiratory Rate 11 08/15/2023 5:02 PM CDT Oxygen Saturation 93% 08/15/2023 5:02 PM CDT Inhaled Oxygen Concentration - - Weight 99.8 kg (220 lb) 08/11/2023 2:13 PM CDT Height 175.3 cm (5' 9 ) 08/11/2023 2:13 PM CDT Body Mass Index 32.49 08/11/2023 2:13 PM CDT Plan of Treatment Health Maintenance Due Date Last Done Comments LIPID TESTING 1982 HIV SCREENING 1997 HEPATITIS C SCREENING 08/29/2000 DTAP/TDAP/TD VACCINES (1 - Tdap) 2001 HEPATITIS B VACCINE (1 of 3 - 19+ 3-dose series) 2001 PNEUMOCOCCAL VACCINE (1 of 2 - PCV) 2001 COVID-19 VACCINE (2023-2 5 season) 2024 INFLUENZA VACCINE (#1) 2024 DEPRESSION SCREENING 10/27/2024 ZOSTER VACCINE (1 of 2) 2032 HIB VACCINE Aged Out No longer eligi ble based on patient's age to complete this topic HPV VACCINE Aged Out No longer eligi ble based on patient's age to complete this topic MENINGOCOCCAL (Group B) VACC INE SHARED DECISION-MAKING Aged Out No longer eligibl e based on patient's age to complete this topic MENINGOCOCCAL GROUPS A/C/Y/W VACCINE Aged Out No longer eligible b ased on patient's age to complete this topic Care Teams Store Stock Associate Relationship Specialty Start Date End Date Cal Gill [address] [place] [address] PCP - General 07/30/24
--- OUTSIDE RECORDS SUMMARY | 2025-01-20 14:09 | XMS_ITS | Referral Summary ---
Author Organization [facility] [address] [place] [phone] Care Team Providers Care Ultrasound Technologist Name Role Phone Liu Rasmussen MD Primary Care Provider + Allergies No known active allergies Medications acetaminophen (TYLENOL) 325 mg tablet Take 2 tablets (650 mg total) by mouth every 4 (four) hours as needed for pain. 30 tablet 10/17/2018 Active ibuprofen (ADVIL,MOTRIN) 600 mg tabletIndicatio ns:Pain Take 1 tablet (600 mg total) by mouth every 6 (six) hours as needed for pain. 30 tablet 10/17/2018 Active Active Problems Problem Noted Date Diagnosed Date Peripheral tear of lateral m eniscus of left knee as current injury 10/09/2017 Complex tear of medial menis cus of left knee as current injury 09/23/2017 Assessment & Plan (09/23/2017 11:02 AM MITER CUTTER): Patient has a partial ACL tear. He should continue with his brace for stability when on his feet especially when working or on uneven terrain. If he continues to have ongoing instability consideration for surgical reconstruction may need to be given Post-traumatic osteoarthritis of left knee 09/23 Assessment & Plan (09/23/2017 11:02 AM MITER CUTTER): Patient does have some posttraumatic arthritis of the knee. A cortisone injection was given to help ameliorate his symptoms. May find intermittent use of anti-inflammatories helpful. Closed fracture of left fibula and tibia 017 Assessment & Plan (08/04/2017 10:34 AM CDT): The patient has a healed fracture of his tibia and fibula with the retained hardware in place. There is no evidence of loosening or infection of the leg or implant. He is likely to have some posttraumatic edema and may benefit from compression supports. Patient most likely should refrain from smoking Acute meniscal tear of left knee 08/04/2017 Assessment & Plan (08/04/2017 10:33 AM CDT): Patient is experiencing recurring locking and effusions of the knee consistent with a meniscal tear. Would recommend MRI to evaluate the integrity of the meniscus initiate appropriate treatment once results are available. Metal suppression will be needed due the presence of the nail in the tibia Social History Tobacco Use Types Packs/Day Years Used Date Smoking Tobacco: Every Day Cigarettes Smokeless Tobacco: Never Alcohol Use Standard Drinks/Week Comments Yes 0 (1 standard drink = 0.6 oz pur e alcohol) Sex and Gender Information Value Date Recorded Sex Assigned at Not on file Legal Sex Male 8:31 AM MITER CUTTER Gender Identity Not on file Sexual Orientation Not on file Last Filed Vital Signs Vital Sign Reading Time Taken Comments Blood Pressure 145/72 10/17/2018 12:42 PM MITER CUTTER Pulse 84 10/17/2018 12:42 PM MITER CUTTER Temperature 36.2 C (97.2 F) 10/17/2018 9:47 AM MITER CUTTER Respiratory Rate 17 10/17/2018 12:42 PM MITER CUTTER Oxygen Saturation 95% 10/17/2018 12:42 PM MITER CUTTER Inhaled Oxygen Concentration - - Weight 93.9 kg (207 lb) 10/13/2017 1:38 PM MITER CUTTER Height 175.3 cm (5' 9 ) 10/13/2017 1:38 PM MITER CUTTER Body Mass Index 30.57 10/13/2017 1:38 PM MITER CUTTER Plan of Treatment Not on file Medical Devices Implanted Type Area Ball Holder Device Identifier Shelf Expiration Date Model / Serial / Lot Fast-Fix 360 Curved Needle Delivery System Implanted:Qty: 1 on 10/09/2017 by Canelo Huang MD at [facility] Left: Knee [employer]/Ort ho 08/26/2020 [id number] / / [id number] Insurance MEDICAID Care Teams Ultrasound Technologist Relationship Specialty Start Date End Date Liu Rasmussen MD [address] [address] PCP - General Nephrology 10/21/24
--- OUTSIDE RECORDS SUMMARY | 2025-01-20 14:09 | XMS_ITS | Clinical Summary ---
Author Organization [facility] [address] [place] [phone] Care Team Providers Care Distance Learning Administrator Name Role Phone Lui Rasmussen MD Primary Care Provider + Allergies [...] 09/23/2017 Assessment & Plan (09/23/2017 11:02 AM SUPERINTENDENT OF SCHOOLS): Patient has a partial ACL tear. He should continue with his brace for stability when on his feet especially when working or on uneven terrain. If he continues to have ongoing instability consideration for surgical reconstruction may need to be given Post-traumatic osteoarthritis of left knee 09/23 Assessment & Plan (09/23/2017 11:02 AM SUPERINTENDENT OF SCHOOLS): Patient does have some posttraumatic arthritis of [...] presence of the nail in the tibia Surgical History Surgery Date Site/Laterality Comments LEG SURGERY Left compound fracture repair ELBOW SURGERY Left with hardware Medical History Medical History Date Comments Bipolar disorder (HCC) Knee meniscus pain, left Social History Tobacco Use Types Packs/Day Years Used Date Smoking Tobacco: Every Day Cigarettes Smokeless Tobacco: Never Alcohol Use Standard Drinks/Week Comments Yes 0 (1 standard drink = 0.6 oz pur e alcohol) Sex and Gender Information Value Date Recorded Sex Assigned at Not on file Legal Sex Male 8:31 AM SUPERINTENDENT OF SCHOOLS Gender Identity Not on file Sexual Orientation Not on file Obstetrics History Last Filed Vital Signs Vital Sign Reading Time Taken Comments Blood Pressure 145/72 10/17/2018 12:42 PM SUPERINTENDENT OF SCHOOLS Pulse 84 10/17/2018 12:42 PM SUPERINTENDENT OF SCHOOLS Temperature 36.2 C (97.2 F) 10/17/2018 9:47 AM SUPERINTENDENT OF SCHOOLS Respiratory Rate 17 10/17/2018 12:42 PM SUPERINTENDENT OF SCHOOLS Oxygen Saturation 95% 10/17/2018 12:42 PM SUPERINTENDENT OF SCHOOLS Inhaled Oxygen Concentration - - Weight 93.9 kg (207 lb) 10/13/2017 1:38 PM SUPERINTENDENT OF SCHOOLS Height 175.3 cm (5' 9 ) 10/13/2017 1:38 PM SUPERINTENDENT OF SCHOOLS Body Mass Index 30.57 10/13/2017 1:38 PM SUPERINTENDENT OF SCHOOLS Plan of Treatment Not on file Medical Devices Implanted Type Area Furnace Filler Device Identifier Shelf Expiration Date Model / Serial / Lot Fast-Fix 360 Curved Needle Delivery System Implanted:Qty: 1 on 10/09/2017 by Canelo Huang MD at [facility] Left: Knee [employer]/Ort ho 08/26/2020 [id number] / / [id number] Insurance MEDICAID [facility] [address] Care Teams Distance Learning Administrator Relationship Specialty Start Date End Date Liu Rasmussen MD [address] [address] PCP - General Nephrology 10/21/24
--- OUTSIDE RECORDS SUMMARY | 2025-01-20 14:09 | XMS_ITS | Data Portability ---
Author Organization [place] [facility] [employer], Main Office Address [address] [place] [address] Assessment Encounter Date Assessment Date Assessment LastModified by Organization Details LastModified Time 05/12/2023 05/12/2023 Assessment: Nicotine smoke: 10/30 ppd 1997-present = 6.25 pack years Bilateral pulmonary nodules Cough Dyspnea Plan: The following were reviewed and explained to the patient: primary care/referral note Abdominal CT 04/17/23 bilateral pulm nodules, up to 9 mm LLL nodule Chest CT 04/25/23 innumerable pulm nodules, up to 7 mm LLL nodule Nicotine cessation counseling provided for 4 minutes. [place] for quitting nicotine include getting ready, getting support and encouragement, learning new skills and behaviors and being prepared to handle slips. Tips for dealing with cravings provided. Prevention of subsequent illnesses from nicotine addiction discussed. Comorbidities include but are not limited to hypertension, cerebrovascular disease, coronary heart disease, congestive heart failure, hyperlipidemia, COPD/asthma, peptic ulcer disease, esophagitis/gastri tis, and osteoporosis. Therapy options offered include: Quitting by total abstinence Receiving nicotine replacement therapy Undergoing hypnosis Filling a bupropion or varenicline prescription Enrolling in Quit For Life program Registering at [email or web address] Making a call to 4-176-SKLO-NOW ( ). A strong, clear, personalized message was given to the patient to quit smoking. The patient was urged to set a quit date. We discussed patient's barriers to quitting and I will be of assistance when patient is ready to quit. I encouraged patient to inform friends and family of plans to quit with a request for support. I encouraged the patient to remove all cigarettes from the environment. We reviewed any previous quit attempts and lessons learned from them. I encouraged total abstinence from smoking and advised the patient that drinking alcohol and/or associating with other smokers are associated with failure or relapse. Patient can enroll in [facility]'s smoking cessation class through Yamile Lockett RN at . Enrollment is free and classes are held every friday of the month from 1:30 pm to 2:30 pm at the conference room next to the cafeteria on the ground floor. Cough/Dyspnea workup will be done as follows: Respiratory allergen panel for [facility] Serum IgE Serum total IgG, IgG1, IgG2, IgG3, IgG4 Hypersensitivity pneumonitis profile ANCA CHING VINH levels RF CCP SSA SSB Scl 70 Centromere B Oksana-1 Myositis panel Complete pulmonary function testing (PFT) PET/CT scan Adherence to therapy is advocated. Nonadherence may lead to treatment failure, further progression of the condition, and other complications. Hospitals admissions are often the result of individuals not taking prescription medications accurately. Alternatively, greater adherence to medication regimens have shown to lower rates of hospitalization and decrease total medical costs in patients with chronic medical conditions. Advocated influenza vaccination annually and pneumonia vaccination in 2046. Advocated weight loss through diet and exercise. Patient's ideal body weight according to height and gender is up to 175 lbs. Encouraged patient to adjust caloric intake to maintain/achieve ideal body weight, emphasizing on fruits, vegetables, whole grains, and fat-free or low-fat products. These include lean meats, poultry, fish, beans, eggs, and nuts and foods that are low in saturated fats, trans-fats, cholesterol, salt (sodium), and glycemic index. Stressed the importance of regular exercise up to the patient's capacity limits. In this case, we recommend 20 min daily walking, 2 days a week of resistance training. Patient to monitor BP daily and bring records to PCP for further management. Follow-up: 1 week after PET/CT scan Not available 05/12/2023 12:12:49 07/09/2023 07/09/2023 Assessment: Nicotine smoke: 10/30 ppd 5753-8564 = 6.25 pack years Bilateral pulmonary nodules Postnasal drip Mod persistent cough-variant asthma Plan: The following were reviewed and explained to the patient: Chest CT 01/10/[address] 04/17/23 bilateral pulm nodules, up to 9 mm LLL nodule Chest CT 04/25/23 innumerable pulm nodules, up to 7 mm LLL nodule Abhijeet PET/CT 05/29/23 up to 8 mm pulmonary nodules with SUV 2.8 Lab data 05/12/23 PFT 07/09/23 FEV1 2.88 L (75%), BD 450 mL = 19% Start Atrovent nasal spray 0.06% 1 spray to each nostril up to 4 times a day for postnasal drip. General information on bronchial asthma was covered. Patient will monitor peak flow daily at a set time and again when symptoms of chest tightness, cough, dyspnea or wheezing occur. Patient will bring peak flow record to subsequent visits. The color of a traffic light will guide the patient's use of asthma medications: (1) Green means Go Zone. Peak flow: above 80% of personal best. Symptoms: Breathing is good, no cough or wheeze present, patient sleeps through the night and can work and play. Plan: Patient will continue the use of preventative medicine. (2) Yellow means Caution Zone. Peak flow: between 50-80% of personal best. Symptoms: Presence of first signs of a cold, exposure to known trigger, mild wheeze, tight chest and coughing especially night. Plan: Patient will add quick-relief medicine to preventative medicine. (3) Red means Danger Zone. Peak flow: below 50% of personal best. Symptoms: Asthma is getting worse quickly and medicine is not helping, breathing is hard and fast, nose opens widely when breathing, ribs showing when breathing, and patient cannot speak in full sentences. Plan: Patient will get help from a physician immediately. Start albuterol HFA 1 puff every 4 hours as needed. Start Flovent HFA 110 mcg 2 puffs BID. Gargle after use. Adherence to therapy is advocated. Nonadherence may lead to treatment failure, further progression of the condition, and other complications. Hospitals admissions are often the result of individuals not taking prescription medications accurately. Alternatively, greater adherence to medication regimens have shown to lower rates of hospitalization and decrease total medical costs in patients with chronic medical conditions. Patient will be referred to Dr. Marcial Beltran , at [facility] for advanced diagnostic and therapeutic bronchoscopy regarding pulm nodules. Advocated influenza vaccination annually and pneumonia vaccination in 2046. Advocated weight loss through diet and exercise. Patient's ideal body weight according to height and gender is up to 175 lbs. Encouraged patient to adjust caloric intake to maintain/achieve ideal body weight, emphasizing on fruits, vegetables, whole grains, and fat-free or low-fat products. These include lean meats, poultry, fish, beans, eggs, and nuts and foods that are low in saturated fats, trans-fats, cholesterol, salt (sodium), and glycemic index. Stressed the importance of regular exercise up to the patient's capacity limits. In this case, we recommend 20 min daily walking, 2 days a week of resistance training. Patient to monitor BP daily and bring records to PCP for further management. Follow-up: 1 week after U consult Not available 09/06/2023 18:47:17 06/10/2024 06/10/2024 The patient gave verbal consent using TeleHealth services and the consent is documented in the medical record prior to using the service. The patient has been informed of what a TeleMedicine visit is. Patient is located at home. Provider is located at office. Names and roles of persons in addition to the patient and provider participating in telemedicine services include none. The patient had a 10 minute TeleMedicine consultation via [employer] to discuss the following: Not available 06/10/2024 20:40:27 Plan of Treatment Reminders Order Date Submit Date Provider Last Modified By Organization Details Last Modified Time Details Appointments None recorded. Lab alpha-1-ant itrypsin (aat) phenotype, serum 2022 023 [facility] (Lab), [address] [place], [address], 15:59:01 BNP (B-type natriuretic peptide), serum or plasma 2022 023 [facility] (Lab), [address] [place], [address], 15:42:40 ige, total, serum [address] (Lab), [address] [place], [address], 3 10:48:01 tb (M tuberculosi s), ifn-gamma janna, blood [address] (Lab), [address] [place], [address], 3 10:48:01 eosinophil count, manual, blood (OBS) [address] (Lab), [address] [place], [address], 3 10:48:02 igg subclasses 1+2+3+4, serum [address] (Lab), [address] [place], [address], 3 10:48:02 respiratory allergen panel - [facility] a [address] (Lab), [address] [place], [address], 3 10:48:02 respiratory allergen panel - [facility] b [address] (Lab), [address] [place], [address], 3 10:48:02 hypersensit ivity pneumonitis profile, serum [address] (Lab), [address] [place], [address], 3 10:48:02 anca panel, serum [address] (Lab), [address] [place], [address], 3 10:48:02 CHING (antinuclea r antibodies) screen, serum [address] (Lab), [address] [place], [address], 10:48:03 VINH (angiotensi n-convertin g enzyme), serum [address] (Lab), [address] [place], [address], 10:48:03 rf (rheumatoid factor), serum [address] (Lab), [address] [place], [address], 10:48:03 ccp (cyclic citrullinat ed peptide) iga+igg, serum [address] (Lab), [address] [place], [address], 10:48:03 ssa Ab, serum [address] (Lab), [address] [place], [address], 10:48:03 ssa Ab, serum [address] (Lab), [address] [place], [address], 10:48:03 oksana-1 Ab, serum [address] (Lab), [address] [place], [address], 10:48:04 centromere B Ab, serum [address] (Lab), [address] [place], [address], 10:48:04 scleroderma (SCL-70) autoantibod ies, serum [address] (Lab), [address] [place], [address], 10:48:04 myositis autoantibod y panel, serum or plasma [address] (Lab), [address] [place], [address], 10:48:04 histoplasma Ab, serum [address] (Lab), [address] [place], [address], 10:48:04 Blastomyces dermatitidi s Ab, qual ID, serum [address] (Lab), [address] [place], [address], 10:48:04 coccidioide s Ab, serum [address] (Lab), [address] [place], [address], 10:48:[address] referral 2022 023 [email or web address] 25 Marcial Beltran MD, [address] [place], [address], 14:49:50 Procedures None recorded. Surgeries None recorded. Imaging PET-CT, skull base to mid-thigh scan - approved [id number] 05/13/2023-2022 023 [facility], [address] [place] [address], [address], 3 17:15:50 Medication Orders ketorolac 10 mg tablet [address] [facility][id number], [address], [place], [place], [id number], 4 20:43:25 Flovent HFA 110 mcg/actuati on aerosol inhaler [address] [facility] #37344, [address], [place], [place], [id number], 3 18:41:59 albuterol sulfate HFA 90 mcg/actuati on aerosol inhaler [address] [facility] #18446, [address], [place], [place], [id number], 3 18:41:58 ipratropium bromide 42 mcg (0.06 %) nasal spray 2022 023 [email or web address] 3 [email or web address] #[id number], [address], [place], [place], [id number], 4 14:08:56 Patient TargetsNo targets recorded. Patient Instructions Encounter Date Encounter Id Patient Instructions Last Modified By Organization Details Last Modified Time 05/12/2023 [id number] complete PFT w/ post bronchodilator spirometry* MARIANA Not available 07/10/2023 09:35:01 06/10/2024 [id number] plan 1. The patient needs to be scheduled for cystoscopy, right semi rigid and possible flexible ureteroscopy with laser stone extraction and right stent placement under general anesthesia surgical time 20 minutes, lactated Ringer's 100 cc/hour Ancef 2 g IV 2. I will send a prescription for Toradol tablets dispensed 20 tablets and I explained to the patient that I am concerned about his fatty liver as well as his kidney function 3. I told him if his pain gets so severe he needs to go to a hospital that has full-time urology coverage 4. He says he does not have transportation 5. I told him if he has to be admitted to the hospital on Friday for pain control we can possibly get that arranged if needed Not available 06/10/2024 20:42:17 Reason for Referral [employer] Referral for M ultiple nodules of lung Referring Physician: Darci Carcamo, Pulmonary Disease, Encounter Date: 07/09/2023 Results Created Date Observation Date Name Description Value Unit Range Abnormal Flag Note LastModifiedBy Organization Detail LastModifiedTime 05/08/20 23 04/25/2023 CT, chest , w/o contr ast No observ ation record ed. [facility] Not Available 2022 09:33:54 05/08/20 23 04/17/2023 CT, abdom en + pelvi s, w/ contr ast No observ ation record ed. [facility] Not Available 2022 09:33:54 06/26/20 23 05/29/2023 PET-C T, skull base to mid-t high scan No observ ation record ed. [place] [id number] [facility] [address] [place], [address], 06/26/2023 17:15:51 06/26/20 23 01/10/2019 CT, chest , w/o contr ast No observ ation record ed. [facility] Not Available 2022 19:26:38 07/10/20 23 07/09/2023 compl ete PFT w/ post [facility] hodil ator dhruv metry * No observ ation record ed. [facility] ([facility] Call Scheduling) [address] [place], [address], 07/10/2023 09:35:01 06/09/[address], abdom en + pelvi s, w/o contr ast No observ ation record ed. [email or web address] Not Available 2023 09:51:27 Result Notes None recorded. Problems Name Problem SNOMED Code Status Onset Date Resolution Date Notes Provider Name and Address Organization Details Recorded Time Bipolar disorder 33498965 Active 2019 Not Available [facility] 3 08:09:40 Alcohol abuse 04190594 Active 2019 Not Available [facility] 3 08:09:40 Depressive disorder 66823197 Active 2019 Not Available [employer] 3 08:09:40 Multiple nodules of lung 701388449 Active 2022 Darci Carcamo MD [address], [address], [place], [address] , [place] [facility] 3 11:40:57 Smoker 79735251 Active 2022 Darci Carcamo MD [address], [address], [place], [address] , [place] [facility] 3 12:15:53 Posterior rhinorrhea 83788454 Active 2022 Darci Carcamo MD [address], [address], [place], [address] , [place] [facility] 3 12:37:56 Chronic cough 82893272 Active 2022 Darci Carcamo MD [address], [address], [place], [address] , [place] [facility] 3 12:39:51 Mild persistent asthma 453481168 Active 2022 Darci Carcamo MD [address], [address], [place], [address] , [place] [facility] 3 18:37:22 Moderate persistent asthma 908904905 Active 2022 Darci Carcamo MD [address], [address], [place], [address] , [place] [facility] 3 18:40:51 Ureteric stone 13067056 Active 2023 Ilya Marley MD [address], [address], [place], [address] , [place] [facility] 4 20:40:08 Renal colic 8338335 Active 2023 Ilya Marley MD [address], [address], [place], [address] , [place] [facility] 4 20:40:14 Notes:Medical History: Bipol ar depression/Anxiety Rhinitis with postnasal drip IgE 70 IU/mL Eosinophils 230/uL AAT PiMM 159 mg% Mod persistent cough-variant asthma Pulmonary nodules Obesity Hypertension RUTH Alcohol use Hepatic steatosis Diverticulosis Bilateral renal cysts Left renal calculi BPH Lumbar spondylosis Procedure History: Left leg fracture surgery 2002 Left elbow surgery 2012 Left knee meniscus surgery 2014 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 Procedures Surgical History None recorded. Imaging Results Imaging Date Name Status LastModified by Organization Details LastModified Time 04/25/2023 CT, chest, w/o contrast completed [facility] Information not available 05/08/2023 09:33:54 04/17/2023 CT, abdomen + pelvis, w/ contrast completed [facility] Information not available 05/08/2023 09:33:54 05/29/2023 PET-CT, skull base to mid-thigh scan completed [facility] [address] [place], [address], 06/26/2023 17:15:51 01/10/2019 CT, chest, w/o contrast completed [facility] Information not available 06/26/2023 19:26:38 07/09/2023 complete PFT w/ post bronchodilator spirometry* completed [facility] ([facility] Call Scheduling) [address] [place], [address], 07/10/2023 09:35:01 06/09/2024 CT, abdomen + pelvis, w/o contrast completed [email or web address] Information not available 06/22/2024 09:51:27 Procedure Notes None recorded. Medical Equipment None Reported. Allergies No known drug allergies Medications Name Sig Start Date Stop Date Status Note LastModified by Organization Details LastModified Time venlafaxine ER 75 mg capsule,ext ended release 24 hr Take 1 capsule every day by oral route. active Not Available Not Available No t Available venlafaxine 75 mg tablet 1 po bid 05/12 completed Not Available Not Available Not Available tizanidine 4 mg tablet 05/12 completed Not Available Not Available Not Available metoprolol succinate ER 50 mg tablet,exte nded release 24 hr active Not Available Not Available Not Available ondansetron HCl 4 mg tablet active Not Available Not Available Not Available hydroxyzine pamoate 50 mg capsule 05/12 completed Not Available Not Available Not Available olanzapine 10 mg tablet 05/12 completed Not Available Not Available Not Available lamotrigine 25 mg tablet 05/12 completed Not Available Not Available Not Available ketorolac 10 mg tablet take 2 tablets every 12 hours p.r.n. moderate- to-severe pain active Not Available Not Available No t Available oxycodone-a cetaminophe n 5 mg-325 mg tablet 05/12 completed Not Available Not Available Not Available tamsulosin 0.4 mg capsule 06/10 completed Not Available Not Available Not Available hydrocodone 7.5 mg-acetamin ophen 325 mg tablet active Not Available Not Available No t Available cephalexin 500 mg capsule TAKE 1 CAPSULE BY MOUTH EVERY 8 HOURS FOR 7 DAYS 05/07 completed Not Available Not Available Not Available gabapentin 300 mg capsule 05/12 completed Not Available Not Available Not Available albuterol sulfate HFA 90 mcg/actuati on aerosol inhaler Inhale 1 puff every 4 hours by inhalatio n route as needed. active Not Available Not Available No t Available ipratropium bromide 42 mcg (0.06 %) nasal spray [place] 1 spray 4 times a day by intranasa l route as needed. 06/10 completed Not Available Not Available Not Available ondansetron 4 mg disintegrat ing tablet 05/12 completed Not Available Not Available Not Available losartan 100 mg tablet active Not Available Not Available Not Available metformin ER 500 mg tablet,exte nded release 24 hr active Not Available Not Available Not Available lamotrigine 100 mg tablet 05/12 completed Not Available Not Available Not Available fluticasone propionate 110 mcg/actuati on HFA aerosol inhaler Inhale 2 puffs twice a day by inhalatio n route. active Not Available Not Available No t Available rosuvastati n 10 mg tablet active Not Available Not Available Not Available Symbicort 160 mcg-4.5 mcg/actuati on HFA aerosol inhaler active Not Available Not Available Not Available Pennsaid 20 mg/gram/act uation (2 %) topical soln in metered-dos e pump apply TWO pumps TO TO AFFECTED AREAS TWICE DAILY 05/12 completed Not Available Not Available Not Available Stiolto Respimat 2.5 mcg-2.5 mcg/actuati on solution for inhalation Inhale 2 puffs every day by inhalatio n route. 05/12 completed Not Available Not Available Not Available Vitals Date Recorded Body weight Body mass index (BMI) Body height Heart rate Oxygen saturation Oxygen saturation in Arterial blood by Pulse oximetry Systolic blood pressure Diastolic blood pressure Provider Name and Address Organization Details Last Updated DateTime 3 629050. 06 g 33.7 kg/m2 175.26 cm 66 /min 98 % 98 % 126 mm[Hg] 80 mm[Hg] Susan Ivey MA [employer] 3 11:37:52 Date Recorded Body temperature Heart rate Respiratory rate Provider Name and Address Organization Details Last Updated DateTime 05/12/2023 97.2 [degF] 66 /min 15 /min Darci Carcamo MD [address] [place], [address], [employer] 05/12/2023 11:55:08 Date Recorded Body height Body mass index (BMI) Body weight Body temperature Heart rate Systolic blood pressure Diastolic blood pressure Provider Name and Address Organization Details Last Updated DateTime 3 175.26 cm 31.5 kg/m2 13856.1 7 g 98.3 [degF] 61 /min 120 mm[Hg] 88 mm[Hg] Melody Almazan MA [employer] 3 12:22:52 Date Recorded Oxygen saturation Oxygen saturation in Arterial blood by Pulse oximetry Heart rate Respiratory rate Provider Name and Address Organization Details Last Updated DateTime 07/09/2023 95 % 95 % 61 /min 14 /min Darci Carcamo MD [address] [place], [address], [employer] 3 12:34:09 Date Recorded Body height Body mass index (BMI) Body weight Provider Name and Address Organization Details Last Updated DateTime 06/10/2024 175.26 cm 35.4 kg/m2 827055.17 g Shania Sanchez [employer] 06/10/2024 14:08:07 Social History Question Answer Notes LastModified by Organizat ion Details LastModified Time Tobacco Smoking Status Current Some Day Smoker [facility] [email or web address] 06/10/2024 14:09:57 What Is Your Level Of Alcohol Consumption? Occasional Information not available 07/09/2023 What Is Your Level Of Caffeine Consumption? Occasional Information not available 07/09/2023 In The 14 Days Before Symptom Onset, Have You Had Close Contact With A Laboratory-confi rmed COVID-19 While That Case Was Ill? No Information not available 07/09/2023 In The 14 Days Before Symptom Onset, Have You Had Close Contact With A Person Who Is Under Investigation For COVID-19 While That Person Was Ill? No Information not available 07/09/2023 Are You Currently Employed? No Information not available 07/09/2023 What Type Of Diet Are You Following? REGULAR Information not available 07/09/2023 Do You Have An Electrostatic Air Filter? No Information not available 07/09/2023 Have You Been Exposed To Chemicals Or Toxins? No Information not available 07/09/2023 Do You Have A Humidifier? No Information not available 07/09/2023 Do You Have Moisture Problems In Your Home? No Information not available 07/09/2023 What Was The Date Of Your Most Recent Tobacco Screening? 07/09/2023 Information not available 07/09/2023 Do You Have Any Pets? No Information not available 07/09/2023 Do You Use Your Seat Belt Or Car Seat Routinely? Yes Information not available 07/09/2023 Do You Have Smoke And Carbon Monoxide Detectors In Your Home? Yes Information not available 07/09/2023 At What Age Did You Start Smoking Tobacco? 17 [email or web address] Information not available 05/12/2023 Are You Passively Exposed To Smoke? No Information not available 07/09/2023 How Much Tobacco Do You Smoke? No Information not available 07/09/2023 Do You Feel Stressed (tense, Restless, Nervous, Or Anxious, Or Unable To Sleep At Night)? [id number] Information not available 07/09/2023 Do You Use Any Illicit Or Recreational Drugs? No Was Smoking Marijuana, Has Not Recently Because Of Breathing Issues Information not available 07/09/2023 Do You Use Sunscreen Routinely? No Information not available 07/09/2023 Have You Recently Traveled Abroad? No Information not available 07/09/2023 Do You Have Any Dietary Restrictions? No Information not available 07/09/2023 Sex: Unknown Functional Status Question Answer Note LastModified by Organization D etails LastModified Time What is your exercise level? None Information not available 07/09/2023 Mental Status None recorded. Family History Relationship Description Onset Age of this Age Resolved Age Notes LastModified by Organization Details LastModified Time Father Tuberculosis Not availab le 05/12/2023 11:52:41 Father Chronic hepatitis Not available 2022 11:52:57 Father Chronic obstructive pulmonary disease Not available 2022 12:52:51 Paternal Grandmother Malignant tumor of colon Not available 2022 11:57:17 Mother Tinnitus Not available 0 05/12/2023 11:59:08 Maternal Aunt Asthma Not availa ble 07/09/2023 12:52:59 Medical History Condition Response COPD Y HIGH CHOLESTEROL / HYPERLIPIDEMIA Y DIABETES, TYPE Y ASTHMA Y HYPERTENSION Y Past Encounters Encounter ID Performer Location Encounter Start Date Encounter Closed Date Diagnosis/Indication Diagnosis SNOMED-CT Code Diagnosis ICD10 Code Diagnosis Note [id number] Darci Carcamo MD [facility] [address] 05/12/2023 11:27:10 05/13/2023 09:03:43 Multiple nodules of lung 173520781 R91.8 Smoker [id number] F17.218 F17.219 Z87.660 [id number] MD GERALD Delgado[facility]UL[facility] [address] 07/09/2023 12:04:02 07/09/2023 13:03:29 Multiple nodules of lung 184420519 R91.8 Smoker 91679179 F17.218 F17.219 Z87.891 Posterior rhinorrhea 758 [address]138 R09.82 Moderate p ersistent asthma 146446890 J45.40 [id number] Ilya Marley MD [facility] [place] [address] [place] [address] 06/10/2024 14:03:30 06/11/2024 09:10:23 Ureteric stone 04543874 N20.1 Renal colic 6801089 N23 Health Concerns Section Related Observation LastModified by Organization Detai ls LastModified Time None Recorded Concern Status LastModified by Organization Details LastModified Time None Recorded Advance Directives Directive None Recorded Payers Encounter Date Sequence Insurance Name Policy Number Policy Cisneors Covered Member ID Cisneros Member ID Guarantor Name 05/12/2023 1 [facility] ON OR AFTER 04/26/21 (MEDICAID REPLACEMENT - HMO) Zaid E Andrea [id number] Zaid E Andrea 07/09/2023 1 [facility] ON OR AFTER 04/26/21 (MEDICAID REPLACEMENT - HMO) Zaid E Andrea [id number] Zaid E Andrea 06/10/2024 1 [facility] ON OR AFTER 04/26/21 (MEDICAID REPLACEMENT - HMO) Zaid E Andrea [id number] Zaid E Andrea Notes Date Note Type Note Provider Name and Address Organization Details Recorded Time 05/12/2023 text/html Primary care/Referring provider: Isabelle Joshua MD CC: I had left lower quadrant abdominal pain from renal calculus. My abdominal CT showed bilateral pulmonary nodules further confirmed with chest CT. Patient is here to go over shortness of breath evaluation/management . Initial development of shortness of breath: uration of shortness of breath: 1 monthCondition of shortness of breath: worseningTiming of shortness of breath: noneFrequency: up to 3 times a dayLimits activities: yesAggravating factors: walking, bending over, heatAlleviating factors: rest Modified [employer] [place] (mMRC) Dyspnea Scale - Grade 1Grade 0 I only get breathless with strenuous exercise .Grade 1 I get short of breath when hurrying on the level or walking up a slight hill .Grade 2 I walk slower than people of the same age on the level because of breathlessness or have to stop for breath when walking at my own pace on the level .Grade 3 I stop for breath after walking about 100 yards or after a few minutes on the level .Grade 4 I am too breathless to leave the house or I am breathless when dressing . Treatment history:None Other symptoms:Drooling: noDysarthria: noNeck pain: noOdynophagia: noDysphagia: noWeak mastication: noFacial weakness: noNasal speech: noProtruding tongue: noProductive cough: yellowWheezing: yesChest tightness: yesOrthopnea: noFrequent throat clearing or swallowing: noPalpitations: noHeartburn: noEdema: no Environmental exposures:Nicotine smoke: 10/30 ppd 1997-present = 6.25 pack yearsPaint: noDye: noDust mites: yesMold: noDamp basement: noWood burning stove: noAnimal dander: noCockroaches: noPollen: yesArsenic: noAsbestos: noBeryllium: noCadmium: noChromium: noCoal smoke: noDiesel fumes: noNickel: noSilica: noSoot: no EPWORTH SLEEPINESS SCALE (ESS) CHANCE OF DOZING SCORE0 = would never doze1 = slight chance of dozing2 = moderate chance of dozing3 = high chance of dozing SITUATION AND CHANCE OF DOZINGSitting and reading - 0Watching television - 1Sitting inactive in a public place (e.g. a theater or meeting) - 0As a passenger in a car for an hour without a break - 1Lying down to rest in the afternoon when circumstances permit - 1Sitting and talking to someone - 0Sitting quietly after lunch without alcohol - 0In a car, while stopped for a few minutes in the traffic - 0TOTAL SCORE 3Subjectively, patient has a slight chance of dozing. Darci Carcamo MD [address] [place] [address], [phone], [facility] - [employer] 05/12/2023 13:32:17 07/09/2023 text/html Primary care/Referring provider: Isabelle Joshua MD CC: I have quit smoking since the last visit. Patient is here to go over his PFT, PET/CT scan and lab workup as part of his shortness of breath evaluation/management . Initial development of shortness of breath: uration of shortness of breath: 3 monthsCondition of shortness of breath: stableTiming of shortness of breath: noneFrequency: up to 3 times a dayLimits activities: yesAggravating factors: walking, bending over, heatAlleviating factors: rest Modified Medical Research [place] (mMRC) Dyspnea Scale - Grade 1Grade 0 I only get breathless with strenuous exercise .Grade 1 I get short of breath when hurrying on the level or walking up a slight hill .Grade 2 I walk slower than people of the same age on the level because of breathlessness or have to stop for breath when walking at my own pace on the level .Grade 3 I stop for breath after walking about 100 yards or after a few minutes on the level .Grade 4 I am too breathless to leave the house or I am breathless when dressing . Treatment history:None Other symptoms:Drooling: noDysarthria: noNeck pain: noOdynophagia: noDysphagia: noWeak mastication: noFacial weakness: noNasal speech: noProtruding tongue: noProductive cough: yellowWheezing: yesChest tightness: yesOrthopnea: noFrequent throat clearing or swallowing: noPalpitations: noHeartburn: noEdema: no Environmental exposures:Nicotine smoke: 10/30 ppd [id number] = 6.25 pack yearsPaint: noDye: noDust mites: yesMold: noDamp basement: noWood burning stove: noAnimal dander: noCockroaches: noPollen: yesArsenic: noAsbestos: noBeryllium: noCadmium: noChromium: noCoal smoke: noDiesel fumes: noNickel: noSilica: noSoot: no EPWORTH SLEEPINESS SCALE (ESS) CHANCE OF DOZING SCORE0 = would never doze1 = slight chance of dozing2 = moderate chance of dozing3 = high chance of dozing SITUATION AND CHANCE OF DOZINGSitting and reading - 0Watching television - 1Sitting inactive in a public place (e.g. a theater or meeting) - 1As a passenger in a car for an hour without a break - 1Lying down to rest in the afternoon when circumstances permit - 1Sitting and talking to someone - 0Sitting quietly after lunch without alcohol - 0In a car, while stopped for a few minutes in the traffic - 0TOTAL SCORE 4Subjectively, patient has a slight chance of dozing. Darci Carcamo MD [address], [facility] [address], [place], [address], [facility] [employer] 09/06/2023 18:47:20 06/10/2024 text/html this patient was seen in the emergency room and a CT scan shows a 4 mm stone in the right proximal ureter The patient was given something for nausea Zofran and also hydrocodone he was not given Toradol tablets. He has fatty liver disease and he says he is at the point where he can not take the pain he would take anything to take the pain away I told him that he has to be careful taking ibuprofen and he says he understands that but we discussed the pros and cons of using a medication called Toradol Ilya Marley MD [address], [place], [address], [facility] [employer] [facility] [employer] 06/10/2024 20:43:22
--- NOTE | 2025-01-20 15:20 | ED.ABDPAIN ---
HPI - Abdominal Pain General Chief Complaint: Abdominal Pain <INDIGO Ramirez Last Filed: 01/20/25 18:27> Stated Complaint: kidney stone <INDIGO Ramirez Last Filed: 01/20/25 18:27> Time Seen by Provider: 01/20/25 15:20 <INDIGO Ramirez Last Filed: 01/20/25 18:27> Focused HPI: Patient is a 44 y/o male who presents to the ED with c/o L flank pain. Patient reports he was seen at [facility] on Friday and was told he had a 3mm L sided kidney stone. Was told he would need urologic surgery, but they did not have Urology team there. Declined transfer at that time and has been trying to pass the stone at home. Has been taking Hydrocodone and Flomax w/o improvement. C/o persistent pain in his L flank radiating to his L lower abdomen. Reports nausea, dark urine, having trouble emptying bladder. Denies hematuria. Also reports ADLER, denies fevers. GENERAL: Well-appearing, well-nourished, and in no acute distress. HEAD: Normocephalic, atraumatic. CHEST: Clear to auscultation. ?No respiratory distress. HEART: Regular rate and rhythm.? ABD: TTP in LLQ, L lower lateral abdomen. Normoactive BS. NEURO: ?Alert and oriented x3. Patient screened in triage and initial orders placed.? ?Additional care and disposition to be based upon?diagnostic testing and treatment. <INDIGO Ramirez Last Filed: 01/20/25 18:27> Source: patient <INDIGO Ramirez Last Filed: 01/20/25 18:27> Mode of arrival: ambulatory <INDIGO Ramirez Last Filed: 01/20/25 18:27> Limitations: no limitations <INDIGO Ramirez Last Filed: 01/20/25 18:27> Related Data Home Medications: Home Medications ?Medication ?Instructions ?Recorded ?Confirmed ?Last Taken ?Type hydroxyzine pamoate 25 mg capsule 25 mg PO BID PRN Anxiety 02/20/22 02/20/22 Unknown History losartan 100 mg tablet 100 mg PO DAILY 02/20/22 02/20/22 Unknown History olanzapine 7.5 mg tablet 7.5 mg PO DAILY 02/20/22 02/20/22 Unknown History <Luanne Thomson PA-C - Last Filed: 01/20/25 18:27> Allergies/Adverse Reactions: Allergies Allergy/AdvReac Type Severity Reaction Status Date / Time No Known Allergies Allergy Mild Verified 06/15/21 09:02 <Luanne Thomson PA-C - Last Filed: 01/20/25 18:27> Review of Systems Review of Systems: All systems reviewed & are unremarkable except as noted in HPI. <Luanne Thomson PA-C - Last Filed: 01/20/25 18:27> All systems reviewed & are unremarkable except as noted in HPI and below <Luanne Thomson PA-C - Last Filed: 01/20/25 18:27> PMFSH Past Medical History Medical History: Medical History Hypertension <Luanne Thomson PA-C - Last Filed: 01/20/25 18:27> Surgical History Surgical History: Surgical History History of knee surgery (~2016) History of surgery on arm (~2002) Compound Fx <Luanne Thomson PA-C - Last Filed: 01/20/25 18:27> Social History Social History: Social History Smoking status: Current every day smoker Alcohol intake: former Alcohol use details: Quit 6 weeks ago. Gender identity (if verbalized by the patient): Male <Luanne Thomson PA-C - Last Filed: 01/20/25 18:27> Exam Narrative: GENERAL: Well-appearing, well-nourished, and in no acute distress. HEAD: Normocephalic, atraumatic. CHEST: Clear to auscultation. ?No respiratory distress. HEART: Regular rate and rhythm.? ABD: TTP in LLQ, L lower lateral abdomen. Normoactive BS. MSK: No gross deformities. Moves all extremities. SKIN: Warm, dry, intact, normal color. NEURO: ?Alert and oriented x3. Speech clear. No focal deficits. Steady gait. PSYCHIATRIC: Normal mood and affect. Normal interaction. <Luanne Thomson PA-C - Last Filed: 01/20/25 18:27> Course PLANT CONTROL OPERATOR/PA Physician Supervision I agree with midlevel documentation; I performed my own medical decision making component for this evaluation. I had independent mept-uj-kstm time with the patient and performed my own independent evaluation and assessment. Patient CT scan shows 2 small stones in the distal left ureter with some left hydronephrotic changes. Urinary bladder stone likely from trying to pass a previous kidney stone. Urinalysis with questionable signs of potential infection so he was given Rocephin. Patient's pain is under control here with medication. He will be admitted for urological evaluation and potential stenting tomorrow. <Power Aly MD - Last Filed: 01/20/25 20:31> Vital Signs Vital signs: Vital Signs Temperature 36.8 C 01/20/25 13:34 Pulse Rate 80 01/20/25 13:34 Respiratory Rate 18 01/20/25 13:34 Blood Pressure 149/103 H 01/20/25 13:34 Pulse Oximetry 98 01/20/25 13:34 Temperature 36.8 C 01/20/25 13:34 Pulse Rate 80 01/20/25 13:34 Respiratory Rate 18 01/20/25 13:34 Blood Pressure 149/103 H 01/20/25 13:34 Pulse Oximetry 98 01/20/25 13:34 <Luanne Thomson PA-C - Last Filed: 01/20/25 18:27> Vital Signs Temperature 36.8 C 01/20/25 13:34 Pulse Rate 80 01/20/25 13:34 Respiratory Rate 18 01/20/25 13:34 Blood Pressure 149/103 H 01/20/25 13:34 Pulse Oximetry 98 01/20/25 13:34 Temperature 36.8 C 01/20/25 13:34 Pulse Rate 80 01/20/25 13:34 Respiratory Rate 18 01/20/25 13:34 Blood Pressure 149/103 H 01/20/25 13:34 Pulse Oximetry 98 01/20/25 13:34 <Power Aly MD - Last Filed: 01/20/25 20:31> MDM - Abdominal Pain MDM Narrative Medical decision making narrative: MSE by SUSANA in triage. Care resumed by myself. Patient presented to ED with left flank and abdominal pain, recently diagnosed with L ureteral stone. Vital signs are stable upon arrival. Patient is afebrile. Cbc without leukocytosis. CMP with slight BHAVANA. Creatinine today 1.64. No recent records to compare to, but baseline appears more around 1.3. Fluids initiated. UA with 2+ leuk esterase, >100 RBC, 21-50 WBC. Sent for cx. Given dose of rocephin in the ED to cover for potential infection. CT scan of abdomen/pelvis was obtained and showing 2 small distal left ureteral stones with hydronephrosis. Will discuss with Urology. Discussed with Urology, Dr. Lopez, recommended admission to hospital, likely stent tomorrow. NPO after midnight, strain all urine, rocephin. Discussed case with Shahnaz Rendon PLANT CONTROL OPERATOR hospitalist, accepted patient for admission. Patient in agreement with plan and admission. <Luanne Thomson PA-C - Last Filed: 01/20/25 18:27> Medical Records Attestation: I reviewed the patient's medical records. <Luanne Thomson PA-C - Last Filed: 01/20/25 18:27> Lab Data Attestation: I reviewed the patient's lab results. <Luanne Thomson PA-C - Last Filed: 01/20/25 18:27> Result diagrams: 01/20/25 15:28 01/20/25 15:28 <INDIGO Ramirez Last Filed: 01/20/25 18:27> Labs: Lab Results 01/20/25 01/20/25 Range/Units 15:28 15:59 WBC 8.4 (4.5-10.0) K/mm3 RBC 4.51 L (4.6-6.20) M/mm3 Hgb 14.1 (14.0-18.0) g/dL Hct 39.7 L (42.0-52.0) % MCV 88.0 (80-100) fl MCH 31.3 (26-34) pg MCHC 35.5 (32-36) g/dl RDW 12.0 (11.5-14.5) % Plt Count 270 (150-375) k/mm3 MPV 9.8 (7.4-10.4) fl Immature Gran % (Auto) 0.2 (0-0.5) % Neut % (Auto) 67.8 (45.5-73.1) % Lymph % (Auto) 22.5 (18.3-44.2) % [place] % (Auto) 6.5 (2.6-8.5) % Eos % (Auto) 2.3 (0-4.4) % Baso % (Auto) 0.7 (0.2-1.2) % Lymph # (Auto) 1.88 (0.9-3.2) K/mm3 [place] # (Auto) 0.5 (0.1-0.6) K/mm3 Eos # (Auto) 0.2 (0-0.3) K/mm3 Baso # (Auto) 0.1 (0.0-0.1) K/mm3 Abs Immat Gran (auto) 0.02 (0.00-0.031) K/mm3 Absolute Neuts (auto) 5.7 (1.3-6.7) K/mm3 Absolute Nucleated RBC 0.000 (0.0-0.012) K/mm3 Nucleated RBC % 0.0 (0.0-0.2) % Sodium 134 L (137-145) mmol/L Potassium 4.4 (3.4-5.0) mmol/L Chloride 99 (98-107) mmol/L Carbon Dioxide 23 (22-30) mmol/L Anion Gap 12 (4-12) mmol/L BUN 16 (9-20) mg/dL Creatinine 1.64 H (0.7-1.3) mg/dL Estim Creat Clear Calc 65 ml/min Estimated GFR 46 L (59 - ) Glucose 120 H (65-110) mg/dL Calcium 10.3 H (8.4-10.2) mg/dL Total Bilirubin 0.8 (0.2-1.3) mg/dL AST 66 H (17-59) U/L ALT 83 H (6-50) U/L Alkaline Phosphatase 90 (38-126) U/L Total Protein 8.0 (6.3-8.2) g/dL Albumin 4.7 (3.5-5.1) g/dL Urine Color Dark yellow (Yellow) Urine Appearance Cloudy H (Clear) Urine pH 5.5 (5.0-9.0) Ur Specific [place] 1.021 (1.001-1.035) Urine Protein 1+ H (Negative) mg/dL Urine Glucose (UA) Negative (Negative) mg/dL Urine Ketones Trace H (Negative) mg/dL Ur Blood (Man) 3+ H (Negative) Urine Nitrate Negative (Negative) Urine Bilirubin 1+ H (Negative) Urine Urobilinogen 1.0 (<2.0) mg/dL Leukocyte Esterase Rfl 2+ H (Negative) MERVIN/UL Urine RBC >100 H (0-2) /hpf Urine WBC 21-50 H (0-3) /hpf Ur Squamous Epith Cells Occasional (Few) /hpf Urine Bacteria None seen /hpf Urine Casts 3-5 <Luanne Thomson PA-C - Last Filed: 01/20/25 18:27> Lab Results 01/20/25 01/20/25 Range/Units 15:28 15:59 WBC 8.4 (4.5-10.0) K/mm3 RBC 4.51 L (4.6-6.20) M/mm3 Hgb 14.1 (14.0-18.0) g/dL Hct 39.7 L (42.0-52.0) % MCV 88.0 (80-100) fl MCH 31.3 (26-34) pg MCHC 35.5 (32-36) g/dl RDW 12.0 (11.5-14.5) % Plt Count 270 (150-375) k/mm3 MPV 9.8 (7.4-10.4) fl Immature Gran % (Auto) 0.2 (0-0.5) % Neut % (Auto) 67.8 (45.5-73.1) % Lymph % (Auto) 22.5 (18.3-44.2) % [place] % (Auto) 6.5 (2.6-8.5) % Eos % (Auto) 2.3 (0-4.4) % Baso % (Auto) 0.7 (0.2-1.2) % Lymph # (Auto) 1.88 (0.9-3.2) K/mm3 [place] # (Auto) 0.5 (0.1-0.6) K/mm3 Eos # (Auto) 0.2 (0-0.3) K/mm3 Baso # (Auto) 0.1 (0.0-0.1) K/mm3 Abs Immat Gran (auto) 0.02 (0.00-0.031) K/mm3 Absolute Neuts (auto) 5.7 (1.3-6.7) K/mm3 Absolute Nucleated RBC 0.000 (0.0-0.012) K/mm3 Nucleated RBC % 0.0 (0.0-0.2) % Sodium 134 L (137-145) mmol/L Potassium 4.4 (3.4-5.0) mmol/L Chloride 99 (98-107) mmol/L Carbon Dioxide 23 (22-30) mmol/L Anion Gap 12 (4-12) mmol/L BUN 16 (9-20) mg/dL Creatinine 1.64 H (0.7-1.3) mg/dL Estim Creat Clear Calc 65 ml/min Estimated GFR 46 L (59 - ) Glucose 120 H (65-110) mg/dL Calcium 10.3 H (8.4-10.2) mg/dL Total Bilirubin 0.8 (0.2-1.3) mg/dL AST 66 H (17-59) U/L ALT 83 H (6-50) U/L Alkaline Phosphatase 90 (38-126) U/L Total Protein 8.0 (6.3-8.2) g/dL Albumin 4.7 (3.5-5.1) g/dL Urine Color Dark yellow (Yellow) Urine Appearance Cloudy H (Clear) Urine pH 5.5 (5.0-9.0) Ur Specific [place] 1.021 (1.001-1.035) Urine Protein 1+ H (Negative) mg/dL Urine Glucose (UA) Negative (Negative) mg/dL Urine Ketones Trace H (Negative) mg/dL Ur Blood (Man) 3+ H (Negative) Urine Nitrate Negative (Negative) Urine Bilirubin 1+ H (Negative) Urine Urobilinogen 1.0 (<2.0) mg/dL Leukocyte Esterase Rfl 2+ H (Negative) MERVIN/UL Urine RBC >100 H (0-2) /hpf Urine WBC 21-50 H (0-3) /hpf Ur Squamous Epith Cells Occasional (Few) /hpf Urine Bacteria None seen /hpf Urine Casts 3-5 <Power Aly MD - Last Filed: 01/20/25 20:31> Imaging Data Attestation: I personally reviewed and interpreted this imaging study as follows: <Luanne Tohmson PA-C - Last Filed: 01/20/25 18:27> Radiologist's impression: ITS Impressions Abdomen/Pelvis CT 01/20/25 15:45 IMPRESSION: 1. 2 small stones in the left lower ureter with left hydronephrotic changes. 2. Tiny stone in the right kidney mid pole. 3. Urinary bladder stone. 4. Hepatomegaly with fat infiltration. 5. Multiple nodules in the lung bases unchanged from previous examination. <Luanne Thomson PA-C - Last Filed: 01/20/25 18:27> ITS Impressions Abdomen/Pelvis CT 01/20/25 15:45 IMPRESSION: 1. 2 small stones in the left lower ureter with left hydronephrotic changes. 2. Tiny stone in the right kidney mid pole. 3. Urinary bladder stone. 4. Hepatomegaly with fat infiltration. 5. Multiple nodules in the lung bases unchanged from previous examination. <Power Aly MD - Last Filed: 01/20/25 20:31> Discharge Plan Discharge Clinical Impression: Calculus of distal left ureter, BHAVANA (acute kidney injury), Abnormal urinalysis <INDIGO Ramirez Last Filed: 01/20/25 18:27> Patient Disposition: Left Against Medical Advice <INDIGO Ramirez Last Filed: 01/20/25 18:27> Condition: Stable <INDIGO Ramirez Last Filed: 01/20/25 18:27>
[2025-01-20] MEDS: ONDANSETRON INJ 4 MG/2 ML VIAL IV PUSH (15:31)
[2025-01-20] MEDS: HYDROcodone/acetaminophen (*CRX) 5-325 MG TABLET 1 TAB PO (15:31)
[2025-01-20 15:34] LABS: Basophils Absolute Auto 0.1 K/mm3 (0.0-0.1); Basophils Percent Auto 0.7 % (0.2-1.2); Eosinophils Absolute Auto 0.2 K/mm3 (0-0.3); Eosinophils Percent Auto 2.3 % (0-4.4); Hematocrit 39.7 % (42.0-52.0); Hemoglobin 14.1 g/dL (14.0-18.0); Immature Granulocyte Absolute 0.02 K/mm3 (0.00-0.031); Immature Granulocyte Percent A 0.2 % (0-0.5); Lymphocytes Absolute Auto 1.88 K/mm3 (0.9-3.2); Lymphocytes Percent Auto 22.5 % (18.3-44.2); Mean Corpuscular HGB Conc 35.5 g/dl (32-36); Mean Corpuscular Hemoglobin 31.3 pg (26-34); Mean Platelet Volume 9.8 fl (7.4-10.4); Monocytes Absolute Auto 0.5 K/mm3 (0.1-0.6); Monocytes Percent Auto 6.5 % (2.6-8.5); Neutrophils Absolute Auto 5.7 K/mm3 (1.3-6.7); Neutrophils Percent Auto 67.8 % (45.5-73.1); Platelet Count Result 270 k/mm3 (150-375); Red Blood Count 4.51 M/mm3 (4.6-6.20); White Blood Count 8.4 K/mm3 (4.5-10.0)
[2025-01-20 15:44] LABS: Alanine Aminotransferase 83 U/L (6-50); Albumin Level 4.7 g/dL (3.5-5.1); Alkaline Phosphatase 90 U/L (38-126); Anion Gap 12 mmol/L (4-12); Aspartate Amino Transferase 66 U/L (17-59); Bilirubin,Total 0.8 mg/dL (0.2-1.3); Blood Urea Nitrogen 16 mg/dL (9-20); Calcium 10.3 mg/dL (8.4-10.2); Carbon Dioxide 23 mmol/L (22-30); Chloride 99 mmol/L (98-107); Estimated CRCL calculation 65 ml/min; Estimated Glomerular Filt Rate 46; Glucose 120 mg/dL (65-110); Potassium 4.4 mmol/L (3.4-5.0); Sodium 134 mmol/L (137-145)
--- OUTSIDE RECORDS SUMMARY | 2025-01-20 16:18 | XMS_ITS | Clinical Summary ---
Author Organization [facility] Address [address] [place] [address] Care Team Providers Care Trousseau Consultant Name Role Phone Cal Gill Primary Care Provider [phone] Source Comments [facility],non-owned Affiliates and Associated Physician Practices is amultiple site organization consisting of ambulatory clinics and hospital sitesin [place], [place], [place] and [place]. This disclosure is being madepursuant to the Care Everywhere program and may not contain all information available regarding this patient. Last updated 18.[facility] Allergies No known active allergies Medications * [...] age to complete this topic Care Teams Trousseau Consultant Relationship Specialty Start Date End Date Cal Gill [address] [place] [address] PCP - General 07/30/24
--- OUTSIDE RECORDS SUMMARY | 2025-01-20 16:18 | XMS_ITS | Clinical Summary ---
Author Organization [facility] [address] [place] [address] Care Team Providers Care Boat Master Name Role Phone Liu Rasmussen MD Primary [...] 09/23/2017 Assessment & Plan (09/23/2017 11:02 AM VOIP ENGINEER): Patient has a partial ACL tear. He should continue with his brace for stability when on his feet especially when working or on uneven terrain. If he continues to have ongoing instability consideration for surgical reconstruction may need to be given Post-traumatic osteoarthritis of left knee 09/23 Assessment & Plan (09/23/2017 11:02 AM VOIP ENGINEER): Patient does have some posttraumatic arthritis of [...] on file Legal Sex Male 8:31 AM VOIP ENGINEER Gender Identity Not on file Sexual Orientation Not on file Obstetrics History Last Filed Vital Signs Vital Sign Reading Time Taken Comments Blood Pressure 145/72 10/17/2018 12:42 PM VOIP ENGINEER Pulse 84 10/17/2018 12:42 PM VOIP ENGINEER Temperature 36.2 C (97.2 F) 10/17/2018 9:47 AM VOIP ENGINEER Respiratory Rate 17 10/17/2018 12:42 PM VOIP ENGINEER Oxygen Saturation 95% 10/17/2018 12:42 PM VOIP ENGINEER Inhaled Oxygen Concentration - - Weight 93.9 kg (207 lb) 10/13/2017 1:38 PM VOIP ENGINEER Height 175.3 cm (5' 9 ) 10/13/2017 1:38 PM VOIP ENGINEER Body Mass Index 30.57 10/13/2017 1:38 PM VOIP ENGINEER Plan of Treatment Not on file Medical Devices Implanted Type Area Consulting Psychiatrist Device Identifier Shelf Expiration Date Model / Serial / Lot Fast-Fix 360 Curved Needle Delivery System Implanted:Qty: 1 on 10/09/2017 by Canelo Huang MD at [facility] Left: Knee [employer] ho 08/26/2020 [id number] / / [id number] Insurance MEDICAID [facility] [id number] Care Teams Boat Master Relationship Specialty Start Date End Date Liu Rasmussen MD [address] [address] PCP - General Nephrology 10/21/24
--- OUTSIDE RECORDS SUMMARY | 2025-01-20 16:18 | XMS_ITS | Encounter Summary ---
Author Organization [facility] Address [address] [facility] [place] [address] Care Team Providers Care Supervisory Examiner Name Role Phone Isabelle Joshua MD Primary Care Provider [phone] Cal Gill Primary Care Provider [phone] Reason for Visit * Reason Onset Date Comments Establish Care 07/22/2023 Encounter Details Date Type Department Care Team (Late st Contact Info) Description 07/22/2023 Telephone [facility] - Pulmonology [address] [place] [address], [place] [id number] Marcial Beltran MD [address] [place] [address] OF PULMONARY/[place] [address] Establish Care Social History Tobacco Use Types [...] a sooner date. Patient Call Back number: [phone] documented in this encounter Plan of Treatment Not on file documented as of this encounter Visit Diagnoses Not on filedocumented in this encounter Care Teams Supervisory Examiner Relationship Specialty Start Date End Date Isabelle Joshua MD [address] [place], [place] [id number] PCP - General Internal Medicine 08/11/23 07/29/24 Cal Gill [address] [place] [phone] PCP - General 07/30/24 documented as of this encounter
--- OUTSIDE RECORDS SUMMARY | 2025-01-20 16:18 | XMS_ITS | Referral Summary ---
Author Organization [facility] [address] [place] [id number] Care Team Providers Care Seed Service Advisor Name Role Phone Liu Rasmussen MD Primary [...] 09/23/2017 Assessment & Plan (09/23/2017 11:02 AM INSTRUMENT TECHNOLOGIST): Patient has a partial ACL tear. He should continue with his brace for stability when on his feet especially when working or on uneven terrain. If he continues to have ongoing instability consideration for surgical reconstruction may need to be given Post-traumatic osteoarthritis of left knee 09/23 Assessment & Plan (09/23/2017 11:02 AM INSTRUMENT TECHNOLOGIST): Patient does have some posttraumatic arthritis of [...] on file Legal Sex Male 8:31 AM INSTRUMENT TECHNOLOGIST Gender Identity Not on file Sexual Orientation Not on file Last Filed Vital Signs Vital Sign Reading Time Taken Comments Blood Pressure 145/72 10/17/2018 12:42 PM INSTRUMENT TECHNOLOGIST Pulse 84 10/17/2018 12:42 PM INSTRUMENT TECHNOLOGIST Temperature 36.2 C (97.2 F) 10/17/2018 9:47 AM INSTRUMENT TECHNOLOGIST Respiratory Rate 17 10/17/2018 12:42 PM INSTRUMENT TECHNOLOGIST Oxygen Saturation 95% 10/17/2018 12:42 PM INSTRUMENT TECHNOLOGIST Inhaled Oxygen Concentration - - Weight 93.9 kg (207 lb) 10/13/2017 1:38 PM INSTRUMENT TECHNOLOGIST Height 175.3 cm (5' 9 ) 10/13/2017 1:38 PM INSTRUMENT TECHNOLOGIST Body Mass Index 30.57 10/13/2017 1:38 PM INSTRUMENT TECHNOLOGIST Plan of Treatment Not on file Medical Devices Implanted Type Area Alumni Secretary Device Identifier Shelf Expiration Date Model / Serial / Lot Fast-Fix 360 Curved Needle Delivery System Implanted:Qty: 1 on 10/09/2017 by Canelo Huang MD at [facility] Left: Knee [employer] ho 08/26/2020 [id number] / / [id number] Insurance MEDICAID Care Teams Seed Service Advisor Relationship Specialty Start Date End Date Liu Rasmussen MD [address] [address] PCP - General Nephrology 10/21/24
[2025-01-20 16:34] LABS: Add Urine Microscopic? YES; Appearance Urine Cloudy (Clear); Bacteria Urine None Seen /hpf; Bilirubin Urine 1+ (Negative); Blood Urine 3+ (Negative); Color Urine Dark Yellow (Yellow); Glucose Urine UA Negative (Negative); Ketones Urine Trace mg/dL (Negative); Leukocyte Esterase Ur 2+ LEU/UL (Negative); Nitrate Urine Negative (Negative); Protein Urine 1+ mg/dL (Negative); RBC Urine >100 /hpf (0-2); Specific Grav Ur 1.021 (1.001-1.035); Squamous Epithelial Cell Urine Occasional /hpf (Few); WBC Urine 21-50 /hpf (0-3); pH Urine 5.5 (5.0-9.0)
[2025-01-20] MEDS: SODIUM CHLORIDE 0.9% IV 1,000 ML 999 ML IV CONT (16:58)
[2025-01-20] MEDS: HYDROmorphone HCL INJ (*CRX) 1 MG/ML SYR 0.5 MG IV PUSH (16:58)
[2025-01-20] MEDS: SODIUM CHLORIDE 0.9% IV 1,000 ML 125 ML IV CONT (18:40)
--- NOTE | 2025-01-20 20:06 | P.PNCROSS_ITS ---
Event Note Event Note Event Note: The patient elected to leave AMA on 01/20/26 at 20:00. Risks were discussed inc luding worsening kidney function and potential irreversible kidney damage, progression of infection, uncontrolled pain, readmission, possibility he did not passed stone. The patient is aware of all of these risks and would still like to go home and leave against medical advice. He is requesting a prescription for the UTI, given physical prescription for Macrobid 100 mg BID x 7 days, no refills. He was also educated on red flag symptoms and return precautions including reduced urine output, gross hematuria, fever, chills, worsening flank pain. He verbalized understanding. He was A&Ox4 at time of departure and ambulatory without assistance.
--- NOTE | 2025-01-20 20:11 | PC.NURSE ---
pt decided to leave AMA. Hospitalist notified.
== END 2025-01-20 20:11 | disposition left against medical advice (07) ==
LOC: ANHED 16:50 → ANH3MEDSUR 20:09
PROVIDERS: Emergency Provider Physician Assistant; PCP Internal Medicine
DX: N17.9 Acute kidney failure, unspecified (principal); N20.1 Calculus of ureter; R82.998 Other abnormal findings in urine; I10 Essential (primary) hypertension; F17.200 Nicotine dependence, unspecified, uncomplicated; R16.0 Hepatomegaly, not elsewhere classified; R91.8 Other nonspecific abnormal finding of lung field
CPT/HCPCS: 36415; 74176; 80053; 81001; 85025; 87086; 96365; 96366; 96375; 96376; 99284; A9270; J0696; J1171; J2405; J7030